=== PATIENT | female | born 1930 | race Caucasian/White ===

== ENCOUNTER 2017-11-11 06:59 | Inpatient (IN) | payer MEDICARE ==
--- NOTE | 2017-10-29 20:12 | HP ---
HISTORY AND PHYSICAL: DATE OF SURGERY/ADMISSION: 11/11/17 SURGEON: Clemencia Gee MD * (DICTATED BY JACKY FUNK) PROCEDURE: Right total hip arthroplasty. CHIEF COMPLAINT: Right hip pain. HISTORY OF PRESENT ILLNESS: Ms. Bobby is an 87-year-old female with complaints of right hip pain secondary to end-stage osteoarthritis. She has failed conservative management and elected to proceed with a right total hip arthroplasty, which is scheduled for 11/11/[address] Gee. PAST MEDICAL HISTORY: Hypertension, COPD, GERD, hypothyroidism, prior CVA in 2009, and anxiety. PAST SURGICAL HISTORY: Cholecystectomy and cataract removal. CURRENT MEDICATIONS: 1. Anoro Ellipta. 2. ProAir HFA. 3. Levothyroxine 25 mcg daily. 4. Hydrochlorothiazide 25 mg daily. 5. Sertraline 50 mg daily. 6. Zolpidem tartrate 10 mg q.h.s. 7. Pantoprazole sodium 40 mg daily. 8. Atorvastatin calcium 10 mg daily. 9. Fluticasone propionate nasal spray. 10. Amitriptyline 25 mg q.h.s. 11. Aspirin 325 mg daily. 12. Calcium with vitamin D. 13. Vitamin C. 14. Vitamin D3. 15. Centrum Silver. 16. I Vitamins. 17. Vitamin B12. ALLERGIES: SPIRIVA, TRAZODONE, and TYLENOL with CODEINE causing disorientation. FAMILY HISTORY: Cancer, coronary artery disease, stroke, and aneurysm. SOCIAL HISTORY: She is an 87-year-old female. She lives alone. She does not smoke, use drugs or alcohol. REVIEW OF SYSTEMS: A complete 14-point review of systems was reviewed with the patient. It was positive for history of a stroke in 2008 causing left-sided weakness. Positive for a history of DVT. Positive for hypothyroidism, GERD, shortness of breath, and COPD. She denies a history of hepatitis C, HIV, or anesthesia problems. PHYSICAL EXAMINATION GENERAL: She is well developed, well nourished, in no acute distress. VITAL SIGNS: She stands 4 feet 10 inches tall, weighs 107 pounds. Her blood pressure is 134/76, her heart rate is 92. HEENT: Normocephalic, atraumatic. NECK: Supple. No palpable lymph nodes. PULMONARY: The lungs are clear to auscultation bilaterally. CARDIO: Regular rate and rhythm. Strong S1, S2. ABDOMEN: Soft, nontender, nondistended. MUSCULOSKELETAL: Right lower extremity, the skin is intact. There are no open wounds or abrasions. She has decreased internal and external rotation of the right hip. She walks with an antalgic gait favoring the right hip. She has 2+ dorsalis pedis pulses. Her lower extremity muscle group strengths are intact at 5/5 and she has intact sensation. ASSESSMENT AND PLAN: Ms. Bobby is an 87-year-old female with complaints of right hip pain secondary to end-stage osteoarthritis. She has failed conservative management and elected to proceed with a right total hip arthroplasty, which is scheduled for 11/11/[address] Gee discussed the risks and benefits of the surgery at today's visit and all of her questions were answered. She will follow up with Dr. Gee in 2 weeks after the surgery. JACKY FUNK [id number]/[facility] #: [id number] L[place]ON
[~2017-11-11 06:59] MED LIST: Buffered Lidocaine 0.9% SYRIN* 5 ML/SYR SYRINGE INTRADERM ONE; Famotidine IV* 10 MG/ML 2 ML (20 mg) IV ONE; Gabapentin CAP(*) 300 MG PO ONE
[2017-11-11] MEDS ORDERED: Famotidine IV* 10 MG/ML 2 ML (20 mg) ONE (07:40)
[2017-11-11] MEDS ORDERED: Gabapentin CAP(*) 300 MG ONE (07:41)
[2017-11-11] MEDS ORDERED: Buffered Lidocaine 0.9% SYRIN* 5 ML/SYR SYRINGE ONE (07:41)
[2017-11-11] MEDS ORDERED: Midazolam* 1 MG/ML 2 ML VIAL (2 MG) ONE (07:55)
[2017-11-11] MEDS ORDERED: Morphine PF AMP (0.5MG/ML)* 5 MG/10 ML AMP ONE (07:58)
[2017-11-11] MEDS ORDERED: fentaNYL* 50 MCG/ML 2 ML VIAL (100 MCG VIAL) ONE (08:05)
[2017-11-11] MEDS ORDERED: KETAMINE HCL* 50 MG/ML 10 ML VIAL ONE (08:26)
[2017-11-11] MEDS ORDERED: Ketorolac INJ* 30 MG/ML 1 ML VIAL ONE (09:13)
[2017-11-11] MEDS ORDERED: EPHEDrine (Pressors)* 50 MG/ML VIAL ONE (09:13)
[2017-11-11] MEDS ORDERED: Propofol* 10 MG/ML 20 ML BTL IV PUSH ONE (09:13)
[2017-11-11] MEDS ORDERED: Ondansetron INJ* 2 MG/ML VIAL ONE (09:13)
[2017-11-11] MEDS ORDERED: Dexamethasone IV* 4 MG/ML 1 ML (4 MG) ONE (09:13)
[2017-11-11] MEDS ORDERED: Phenylephrine INJ* 10 MG/ML 1 ML VIAL (10 MG) ONE (09:14)
[2017-11-11] MEDS ORDERED: Acetaminophen TAB* 325 MG PO PRN ×2 (09:26→09:31)
[2017-11-11] MEDS ORDERED: Magnesium Hydroxide LIQ* 30 ML UDC PO PRN (09:26)
[2017-11-11] MEDS ORDERED: diPHENhydraMINE IV* 50 MG/ML 1 ml VIAL (BENADRYL) IV PRN (09:26)
[2017-11-11] MEDS ORDERED: Cyclobenzaprine TAB* 10 MG PO PRN (09:26)
[2017-11-11] MEDS ORDERED: oxyCODONE TAB* 5 MG TAB PO PRN (09:31)
[2017-11-11] MEDS ORDERED: DiMENhydriNATE IV* 50 MG/ML VIAL IV PUSH PRN (09:31)
[2017-11-11] MEDS ORDERED: Naloxone* 0.4 MG/ML 1 ML VIAL IV PRN ×2 (09:31→09:33)
[2017-11-11] MEDS ORDERED: HYDROmorphone INJ* 1 MG/ML CARPUJECT SYRINGE IV PRN (09:31)
[2017-11-11] MEDS ORDERED: Gabapentin CAP(*) 100 MG PO ONE (09:32)
[2017-11-11] MEDS ORDERED: Nalbuphine* 20 MG/ML 1 ML VIAL IV PRN (09:33)
[2017-11-11] MEDS ORDERED: oxyCODONE/Acetamin 5/325 MG* TAB PO PRN (09:33)
[2017-11-11] MEDS ORDERED: Ondansetron INJ* 2 MG/ML VIAL IV PRN (09:33)
--- NOTE | 2017-11-11 09:51 | RAD ---
INDICATION: Intraoperative film during right hip arthroplasty TECHNIQUE: An AP view of the pelvis was obtained in the OR. FINDINGS: The right hip prosthesis is anatomically aligned in the AP projection. The femoral head component has not yet been installed. The visualized bones are adequately aligned. IMPRESSION: Anatomic alignment of currently installed hip prostheses in the AP projection on this intraoperative radiograph.
[2017-11-11] MEDS ORDERED: Gabapentin CAP(*) 100 MG ONE (10:20)
[2017-11-11] MEDS: Ibuprofen TAB* 600 MG PO SCH ×3 (13:36→22:28)
--- NOTE | 2017-11-11 14:25 | RAD ---
HISTORY: Status post right hip arthroplasty COMPARISONS: August 14, 2017 VIEWS: 3, Frontal view of the pelvis with frontal and crosstable lateral views of the right hip. The patient is obliqued to the left. FINDINGS: BONE DENSITY: Normal. BONES: The patient is status post right hip arthroplasty. There is no hardware failure or osteolysis. JOINTS: The patient is status post right hip arthroplasty ALIGNMENT: There is no dislocation. SOFT TISSUES: Unremarkable. OTHER FINDINGS: None. IMPRESSION: STATUS POST RIGHT HIP ARTHROPLASTY
[2017-11-11] MEDS ORDERED: NS 0.9% 500 ML* 500 ML IV ONE (14:40)
--- NOTE | 2017-11-11 14:49 | CONSULT ---
Subjective Date of Service: 11/11/17 Interval History: This is a very pleasant 87 year old female patient with longstanding hx of osteoarthritis of the right hip, that failed conservative treatment with PT and intraarticular injection in the past. Patient states she was having difficulty getting in and out of the car and ambulating up and down stairs and sought surgical consultation with Dr. Gee. She has undergone a right total hip arthroplasty today. She was seen in her room, family at bedside. She is having post-operative hypotension with dizziness and feels dry. Family History: Findings - Non-contributory Social History: Findings - Does not smoke, drink alcohol or use drugs Past Medical History: Findings - COPD, OA, Hypothyroidism, HTN, Anxiety/ Depression, Insomnia, HLP, GERD and prior CVA with left sided deficit Review of Systems - Measurements Intake and Output: Intake and Output Last 24 Hours 11/09/17 11/10/17 11/11/17 11/12/17 06:59 06:59 06:59 06:59 Intake Total 2725 Output Total 400 Balance 2325 Weight 108 lb Intake: IV Fluids 2195 LR 2195 Oral 530 Output: Martinez 400 - Review of Systems Constitutional Symptoms: Negative: Weight Gain, Weight Loss, Weakness, Fatigue, Fever, Night Sweats, Unexplained Falls, Other Dermatology: Negative: Normal, Rash, Skin Lesions, Cancer, Skin Lumps, Other HEENT: Negative: Normal, Change in Hearing, Vertigo, Dental Problems, Tinnitus, Sinus Problem, Other Eyes: Positive: Contacts or Glasses Thyroid: Negative: Normal, Goiter, Thyroid Nodule, Cold Intolerance, Heat Intolerance , Sweatiness, Tremor, Frequent Defecation, Constipation, Palpitations, Primary Hypothyroidism, Primary Hyperthyroidism, Weight Loss, Weight Gain, Change in Skin/Hair, Change in Menstruation, Radiation Exposure, Other Pulmonary: Positive: COPD, Exercise Intolerance, Home Oxygen Cardiology: Negative: Normal, Chest Pain, Shortness of Breath, Palpitations, Swelling of Ankles, Peripheral Vascular Dis, Edema, Faintness, Syncope, Claudication, Proximal NocturnalDyspnea, Orthopnoea, Other Gastroenterology: Negative: Normal, Abdominal Pain, Nausea, Vomiting, Anorexia, Indigestion, Difficulty Swallowing, Heartburn, Constipation, Diarrhea, Blood in Stools, Change in Bowel Habits, Haematemesis, Melena, Other Genital - Urinary: Positive: Other - martinez Genitourinay - Female: Negative: Menses Normal, Vaginal Discharge, Menopause, Dysmenorrhea, Other Musculoskeletal: Positive: Joint Pain, Other - post-operative pain, tolerable Endocrinology: Negative: Normal, Thyroid Problems, Adrenal Problems, Gonadal Problems, Family Hx Endocrine Disorders, Obesity, Diabetes Mellitus, Hyperglycemia, Hx Hypoglycemia, Diabetic Foot Ulcers, Calluses, Hirsutism, Menstral Abnormalities , Polydipsia, Polyuria, Gonadal Problems, Gynecomastia, Pituitary disease, Other Hematologic/Lymphatic: Negative: Anemia, Easy Brusing, Hx Leukemia, Hx Lymphoma, Use of Anticoagulant, Use of Antiplatelet Drugs, Other Neurology: Positive: Change in Balancing, Hx of Stroke\TIA, Other - left side deficit at baseline Psychiatry: Negative: Normal, Depression - history of anxiety/depression, Anxiety, Depressed Mood, Adhedonia, Sexual Dysfunction, Weight Change, Guilt Feelings, Tearfulness, Unusual Fatigue, Unusual Anxiety, Suicidal Ideation, Hypomania, Eating Disorders, Other Allergic/Immunologic: Negative: Hx Anaphylaxis, Hx Angioedema, Hx Environmental, Hx Seasonal, Athsma, Hx HIV, Immunocompromise, Swollen Glands LymphNodes, Other Objective Active Medications: Acetaminophen (Tylenol Tab*) 650 mg PO Q4H PRN PRN Reason: PAIN OR TEMPERATURE Amitriptyline HCl (Elavil Tab*) 25 mg PO BEDTIME ME[facility]I Atorvastatin Calcium (Lipitor*) 10 mg PO 1700 [facility] Cyclobenzaprine HCl (Flexeril Tab*) 10 mg PO TID PRN PRN Reason: SPASMS Diphenhydramine HCl (Benadryl Iv*) 25 mg IV Q6H PRN PRN Reason: itching Docusate Sodium (Colace Cap*) 100 mg PO BID [facility] Enoxaparin Sodium (Lovenox(*)) 30 mg SUBCUT Q24H [facility] Cefazolin Sodium/Dextrose (Kefzol 1 Gm In Dextrose Duplex (*)) 1 gm in 50 mls @ 200 mls/hr IVPB Q8H [facility] Lactated Ringer's (Lactated Ringers 1000 Ml Bag*) 1,000 mls @ 100 mls/hr IV PER RATE [facility] Last Admin: 11/11/17 12:06 Dose: 100 mls/hr Sodium Chloride (Ns 0.9% 500 Ml*) 500 mls @ 0 mls/hr IV ONCE ONE PRN Reason: Wide Open Stop: 11/11/17 14:41 Ibuprofen (Motrin Tab*) 600 mg PO Q6H [facility] Stop: 11/12/17 00:12 Last Admin: 11/11/17 13:36 Dose: Not Given Lactulose (Lactulose*) 30 ml PO Q6H PRN PRN Reason: constipation Levothyroxine Sodium (Synthroid Tab*) 25 mcg PO QAM@0600 [facility] Magnesium Hydroxide (Milk Of Magnesia Liq*) 30 ml PO BID [facility] Magnesium Hydroxide (Milk Of Magnesia Liq*) 30 ml PO Q6H PRN PRN Reason: constipation Morphine Sulfate (Morphine Inj (Syringe)*) 2 mg IV Q2H PRN PRN Reason: PAIN - UNCONTROLLED Multivitamins (Theragran Tab*) 1 tab PO DAILY [facility] Nalbuphine HCl (Nubain*) 5 mg IV Q6H PRN PRN Reason: pruritis Stop: 11/12/17 00:12 Naloxone HCl (Narcan*) 0.08 mg IV Q2M PRN PRN Reason: severe induced resp depression Stop: 11/12/17 00:12 Omeprazole (Prilosec Cap*) 20 mg PO QAM@0730 [facility] Ondansetron HCl (Zofran Inj*) 4 mg IV Q6H PRN PRN Reason: Nausea/Vomiting Stop: 11/12/17 00:12 Ondansetron HCl (Zofran Inj*) 4 mg IV Q6H PRN PRN Reason: nausea Oxycodone HCl (Roxycodone Tab*) 10 mg PO Q4H PRN PRN Reason: PAIN - SEVERE Oxycodone/Acetaminophen (Percocet 5/325 Tab*) 1 tab PO Q4H PRN PRN Reason: Moderate Pain Stop: 11/12/17 00:12 Oxycodone/Acetaminophen (Percocet 5/325 Tab*) 2 tab PO Q4H PRN PRN Reason: PAIN - MODERATE TO SEVERE Oxycodone/Acetaminophen (Percocet 5/325 Tab*) 1 tab PO Q4H PRN PRN Reason: PAIN - MODERATE Pharmacy Profile Note (Coumadin Daily Reminder*) 1 note FOLLOW UP 1700 [facility] Sertraline HCl (Zoloft*) 50 mg PO QAM [facility] Temazepam (Restoril Cap*) 15 mg PO BEDTIME [facility] Umeclidinium/Vilanterol (Anoro 62.5/25 Ellipta Device (Nf)) 1 inh INH QAM [facility] Warfarin Sodium (Coumadin Tab(*)) 6 mg PO ONCE@1700 ONE PRN Reason: Protocol Stop: 11/11/17 17:01 Vital Signs - 8 hr 11/11/17 11/11/17 11/11/17 07:57 10:26 10:30 Temperature 97.7 F 97.3 F Pulse Rate 91 75 76 Respiratory 20 20 20 Rate Blood Pressure 145/80 94/48 96/46 (mmHg) O2 Sat by Pulse 93 99 96 Oximetry 11/11/17 11/11/17 11/11/17 10:35 10:45 11:00 Temperature Pulse Rate 76 76 80 Respiratory 18 16 20 Rate Blood Pressure 94/55 93/51 96/59 (mmHg) O2 Sat by Pulse 98 98 100 Oximetry 11/11/17 11/11/17 11/11/17 11:15 11:33 11:45 Temperature 97.0 F Pulse Rate 80 80 Respiratory 18 18 14 Rate Blood Pressure 99/55 100/61 (mmHg) O2 Sat by Pulse 99 100 Oximetry 11/11/17 11/11/17 11/11/17 12:17 12:57 14:33 Temperature 97.5 F 97.7 F Pulse Rate 81 86 Respiratory 14 16 Rate Blood Pressure 100/52 99/55 (mmHg) O2 Sat by Pulse 99 99 99 Oximetry Oxygen Devices in Use Now: Nasal Cannula - 2LNC Appearance: Alert, NAD, well appearing Eyes: No Scleral Icterus, PERRLA Ears/Nose/Mouth/Throat: NL Teeth, Lips, Gums, - - dry oral mucosa Neck: Trachea Midline - bounding carotid pulse Respiratory: Symmetrical Chest Expansion and Respiratory Effort, Clear to Auscultation Cardiovascular: RRR, No Edema - regular rate and rhythm, no murmur Abdominal: NL Sounds; No Tenderness; No Distention Extremities: No Edema, No Clubbing, Cyanosis Skin: No Rash or Ulcers, - - dressing CDI Neurological: Alert and Oriented x 3, NL Sensation - baseline left side motor weakness, sensation intact Lines/Tubes/Other Access: Clean, Dry and Intact Martinez, Clean, Dry and Intact Peripheral IV Assessment/Plan - Billing Assessment: This is an 87 year old female with PMHx of COPD, OA, Hypothyroidism, HTN, Anxiety/Depression, Insomnia, HLP, GERD and prior CVA with left sided deficit that has undergone a RTHA, POD0. We are being consulted for medical co- management of post-opertive hypotension. Plan: 1. Hold HCTZ 2. Fluid bolus now, NS 500ml 3. Monitor for orthostasis, supervised position changes 4. Titrate O2 to keep sat >90% 5. Add restoril for sleep, as patient is stabilized on ambien which is NF med 6. Continue home medications per DEC 7. PT/OT, hip precautions, pain control as per ortho team VTE PPX: - Lovenox/coumadin bridge per ortho Diet: - Regular, as tolerated Code Status: - Full Code Thank you for the courtesy of this consult, will follow patient with you.
[2017-11-11] MEDS: ceFAZolin 1 GM in Dextrose (*) 1 GM/50 ML BAG IVPB SCH (16:58)
[2017-11-11] MEDS ORDERED: Warfarin TAB(*) 6 MG PO ONE (17:00)
[2017-11-11] MEDS ORDERED: Atorvastatin* 10 MG TAB PO SCH (17:00)
[2017-11-11] MEDS: Amitriptyline TAB* 25 MG PO SCH (22:29)
[2017-11-11] MEDS: Docusate CAP* 100 MG PO SCH (22:29)
[2017-11-11] MEDS: Atorvastatin* 10 MG TAB PO SCH (22:29)
[2017-11-11] MEDS: Magnesium Hydroxide LIQ* 30 ML UDC PO SCH (22:31)
[2017-11-12] MEDS ORDERED: oxyCODONE/Acetamin 5/325 MG* TAB PO PRN (00:13)
[2017-11-12] MEDS ORDERED: Morphine INJ* 2 MG/ML 1 ML SYRINGE (TWO MG - NEW SYRINGE VERSION) IV PRN (00:13)
[2017-11-12] MEDS: Temazepam CAP* 15 MG PO SCH ×2 (00:19→22:50)
[2017-11-12] MEDS ORDERED: NS 0.9% 500 ML* 500 ML IV ONE (00:30)
[2017-11-12 00:58] LABS: Hematocrit 28 % (35-47); Hemoglobin 9.4 g/dl (12.0-16.0)
[2017-11-12] MEDS: ceFAZolin 1 GM in Dextrose (*) 1 GM/50 ML BAG IVPB SCH ×2 (01:09→08:21)
--- NOTE | 2017-11-12 04:55 | OP ---
DATE OF OPERATION: 11/11/17 - ROOM #349 DATE OF : 30 SURGEON: Clemencia Gee MD GAS EXAMINER: JACKY Obrien. Ms. Canales did help throughout the procedure with preparation of the leg, wound retraction, manipulation of the hip, and wound closure. ANESTHESIOLOGIST: Dr. Morelos. ANESTHESIA: Spinal. PRE-OP DIAGNOSIS: Severe end-stage degenerative osteoarthritis of the right hip joint. POST-OP DIAGNOSIS: Severe end-stage degenerative osteoarthritis of the right hip joint. OPERATIVE PROCEDURE: Right total hip arthroplasty. ESTIMATED BLOOD LOSS: 250 cc. COMPLICATIONS: None. SPECIMEN: Bone and cartilage sent from the right hip joint to pathology. HARDWARE USED: This is a [place] uncemented total hip arthroplasty hardware. For the cup, a Tritanium hemispheric cluster hole shell 50B. A single 16mm and a single 20 mm cancellous bone screws were used. For the insert, a Trident X3 0 - degree polyethylene insert 36B. For the stem, an Accolade TMZF, size 2.5 with a 127-degree neck and for the head, a Biolox delta ceramic V40 femoral head 36 -2.5. BRIEF HISTORY/INDICATIONS: Ms. Vandana Bobby is an 87-year-old female with years of increasingly severe right hip pain. She elected to undergo a right total hip arthroplasty due to continued pain and decreased quality of life. She failed conservative treatment with anti-inflammatories, pain medication and physical therapy. Informed consent was obtained from the patient. She understood the risks of the surgery included, but were not limited to bleeding, infection, damage to nearby structures, continued pain, need for further surgery , intraoperative fracture, nerve palsy, hardware failure or loosening, dislocation, leg length discrepancy, stroke, heart attack, blood clot, and . She wished to proceed. INTRAOPERATIVE FINDINGS: Intraoperatively, the patient was noted to have severe arthritis with extremely thin bony wan of the acetabulum. She had complete loss of cartilage in the femoral head and acetabulum. DESCRIPTION OF PROCEDURE: Ms. Vandana Bobby was identified in the preanesthesia unit. Her right lower extremity was marked as the correct operative side. Informed consent was signed and placed in the chart. The patient was taken to the operating room and placed under spinal anesthesia without difficulty. A Riley catheter was placed. The patient was placed in the left lateral decubitus position on the peg board. All bony prominences were well padded. The right lower extremity was prepped and draped in the usual sterile fashion. Preop time-out was made to correctly identify the patient's side and site. Appropriate perioperative antibiotics were given within 1 hour of incision. A 10-cm posterior hip incision was made with a 10 blade and carried down to the lateral fascial layer. The lateral fascial layer was incised in line with the skin incision. A Charnley retractor was placed. The piriformis and conjoint tendons were identified and elevated off the posterolateral femur using electrocautery. These were tagged with #5 Ethibonds. Electrocautery was used to make a capsular flap. This was also tagged with #5 Ethibonds. The hip was carefully dislocated. The lesser troch to center of the femoral head measured 48 mm. An oscillating saw was used to make the femoral neck cut. The femoral head was removed. The femur was carefully retracted anteriorly. After appropriate placement of retractors, the acetabulum was well visualized. Long- handled knife was used to remove any remaining labrum from the acetabular rim. It was noted that there was complete loss of cartilage in the acetabular wall. It was extremely thin. The acetabulum was sequentially reamed up to a size 49. Bleeding subchondral bone bed was obtained. A 49 trial had satisfactory stability. Final implant chosen was a Tritanium cluster hole shell 50B. This was impacted into the acetabulum without difficulty. Appropriate anteversion and abduction angle were obtained. Two screws were placed in the superior posterior quadrant for extra stability. These were length 16 and 20 mm. Insert chosen was a Trident X3 0- degree polyethylene insert 36D. This was impacted into the acetabulum without difficulty. Stability of the Z-line was checked and rechecked and noted to be stable. Attention was next turned to preparation of the femur. A canal finder was used to enter the proximal femur. The proximal femur was sequentially broached up to a size 2.5. The 2.5 broach had excellent stability and fit with appropriate anteversion. A 127 neck trial was chosen as well as a 36 -2.5 head trial. Lesser troch to the center of the femoral head measured 50 mm. The hip was reduced and taken through a range of motion. The hip was stable in all positions. The hip was carefully dislocated. All trials were carefully removed. Final implant chosen was an Accolade TMZF size 2.5 with a 127-degree neck. This was impacted into the femur without difficulty. Excellent stability and appropriate anteversion were obtained. A Biolox delta ceramic D40 femoral head 36 -3.5 was chosen as the final head and this was impacted on to the femoral neck. Lesser troch to the center of the femoral head measured 50 mm. The hip was reduced and taken through a range of motion. The hip was stable in all positions. There was appropriate soft tissue tension and leg length. The hip was copiously irrigated with sterile saline. Previously tagged capsule and tendons were reapproximated to the posterolateral femur through 2 trochanteric drill holes. The lateral fascial layer was closed using interrupted #1 Vicryls. The rest of the incision was closed in a layered fashion using 0 and 2-0 Vicryls. Skin was closed using running 3-0 Monocryl with Dermabond. Sterile Adaptic, 4x4s, and paper tape were used to cover the incision. The patient's anesthesia was reversed without difficulty. She was taken to the PACU in stable condition. Intended weightbearing will be weightbearing as tolerated. Intended DVT prophylaxis will be Coumadin with a Lovenox bridge. [id number]/[facility] #: [id number] [place]
[2017-11-12 05:35] LABS: Hematocrit 28 % (35-47); Hemoglobin 9.3 g/dl (12.0-16.0); Mean Platelet Volume 8 um3 (7.4-10.4); Platelet Count 167 10^3/ul (150-450)
[2017-11-12 05:49] LABS: INR 1.02 (0.77-1.02)
[2017-11-12] MEDS: Levothyroxine TAB* 25 MCG TAB PO SCH (06:01)
[2017-11-12] MEDS: oxyCODONE/Acetamin 5/325 MG* TAB PO PRN ×4 (06:01→23:19)
[2017-11-12] MEDS: Omeprazole CAP* 20 MG PO SCH (07:24)
[2017-11-12] MEDS: PTO:Umeclidin/Vilant 62.5 MDI 62.5/25 mcg 14 INH ELLIPTA DEVICE INH SCH (07:50)
[2017-11-12] MEDS: Docusate CAP* 100 MG PO SCH ×2 (08:21→22:31)
[2017-11-12] MEDS: Magnesium Hydroxide LIQ* 30 ML UDC PO SCH ×2 (08:21→22:33)
[2017-11-12] MEDS: Vitamin THERAPEUTIC TAB PO SCH (08:21)
[2017-11-12] MEDS: Potassium Chlor TAB* 20 MEQ TAB.ER PO SCH ×2 (08:21→22:31)
[2017-11-12] MEDS: Sertraline* 50 MG TAB PO SCH (08:21)
[2017-11-12] MEDS ORDERED: Hydrochlorothiazide TAB* 25 MG PO SCH (09:00)
[2017-11-12] MEDS ORDERED: Enoxaparin(*) 30 MG/0.3 ML SYR SUBCUT SCH (09:00)
[2017-11-12] MEDS ORDERED: Artificial Tears* 15 ML BTL BOTH EYES SCH (09:00)
[2017-11-12] MEDS: Ondansetron INJ* 2 MG/ML VIAL IV PRN ×2 (09:31→16:03)
[2017-11-12] MEDS ORDERED: THERA TEARS EYE BOTH EYES SCH (10:28)
--- NOTE | 2017-11-12 14:44 | PN ---
Progress Note - Progress Note Date of Service: 11/12/17 SOAP: Subjective: [] Objective: [] Assessment: [] Plan: []
--- NOTE | 2017-11-12 14:50 | PN ---
Progress Note - Progress Note Date of Service: 11/12/17 SOAP: Subjective: 87 y/o female s/p R BETTINA on 11/[address] Gee, P/O day 1. She had some dizziness and hypotension overnight, some nausea. Denies vomiting, F/C, SOB, CP. Pain level 6/10 currently, percocet controlling pain. Objective: Vital Signs Temp Pulse Resp BP Pulse Ox 98.8 F 73 16 98/48 99 11/12/17 12:00 11/12/17 12:00 11/12/17 14:31 11/12/17 12:00 11/12/17 12:00 Laboratory Results - last 24 hr 11/12/17 11/12/17 11/12/17 00:46 05:25 05:25 Hgb 9.4 L 9.3 L Hct 28 L 28 L Plt Count 167 MPV 8 INR (Anticoag Therapy) 1.02 Sodium Potassium Chloride Carbon Dioxide Anion Gap BUN Creatinine Est GFR ( Amer) Est GFR (Non-Af Amer) BUN/Creatinine Ratio Glucose Calcium 11/12/17 05:25 Hgb Hct Plt Count MPV INR (Anticoag Therapy) Sodium 138 Potassium 3.3 L Chloride 104 Carbon Dioxide 29 Anion Gap 5 BUN 18 Creatinine 0.76 Est GFR ( Amer) 92.6 Est GFR (Non-Af Amer) 72.0 BUN/Creatinine Ratio 23.7 H Glucose 101 H Calcium 7.9 L General: WN, WD, in NAD, lying comfortably in bed with son in room. A&Ox3. Normal mood and affect. RLE: Dressing D/C/I. No erythema proximal or distal to dressing. Able to DF/PF, wiggle toes, 2+ DP pulse, sensation intact distally. Assessment: 87 y/o female p/o day 1 s/p R BETTINA on 11/[address] Gee. Plan: - Continue PT/OT, hip precautions - Continue current pain regiment - Hypotensive with dizziness, Dr. Gee concerned for blood loss, will go ahead and give 1 unit as continues to have soft BP. - DVT prophylaxis with lovenox bridge to comadin
--- NOTE | 2017-11-12 14:53 | PN ---
Progress Note - Progress Note Date of Service: 11/12/17 Note: Addendum: 1 unit PRBC not given at this time, continue to monitor as BP is stable.
[2017-11-12] MEDS ORDERED: ceFAZolin 1 GM in Dextrose (*) 1 GM/50 ML BAG IVPB SCH (16:30)
--- NOTE | 2017-11-12 16:31 | PN ---
Subjective Date of Service: 11/12/17 Interval History: Patient seen and examined at bedside. Denies fever, chills, shortness of breath , chest discomfort, N/V/D. Pt reports lightheadedness when up. Pt states that her pain is controlled at this time. Pt and daughter report areas of redness to right bicep, right cheek and small area of redness to left cheek under O2 tubing that started after PT this afternoon. Area is not itchy. She has received new medications here and used new lotions. Family History: Findings - Non-contributory Social History: Findings - Does not smoke, drink alcohol or use drugs Past Medical History: Findings - COPD, OA, Hypothyroidism, HTN, Anxiety/ Depression, Insomnia, HLP, GERD and prior CVA with left sided deficit Objective Active Medications: Acetaminophen (Tylenol Tab*) 650 mg PO Q4H PRN Reason: PAIN OR TEMPERATURE Amitriptyline HCl (Elavil Tab*) 25 mg PO BEDTIME MEHDI Atorvastatin Calcium (Lipitor*) 10 mg PO BEDTIME MEHDI Cyclobenzaprine HCl (Flexeril Tab*) 10 mg PO TID PRN Reason: SPASMS Diphenhydramine HCl (Benadryl Iv*) 25 mg IV Q6H PRN Reason: itching Docusate Sodium (Colace Cap*) 100 mg PO BID MEHDI Enoxaparin Sodium (Lovenox(*)) 30 mg SUBCUT Q24H MEHDI Fluticasone Propionate (Flonase Nasal [place] 50mcg*) 2 spray BOTH NARES BEDTIME MEHDI Lactated Ringer's (Lactated Ringers 1000 Ml Bag*) 1,000 mls @ 100 mls/hr IV PER RATE MEHDI Lactulose (Lactulose*) 30 ml PO Q6H PRN Reason: constipation Levothyroxine Sodium (Synthroid Tab*) 25 mcg PO QAM@0600 EMHDI Magnesium Hydroxide (Milk Of Magnesia Liq*) 30 ml PO BID MEHDI Magnesium Hydroxide (Milk Of Magnesia Liq*) 30 ml PO Q6H PRN Reason: constipation Morphine Sulfate (Morphine Inj (Syringe)*) 2 mg IV Q2H PRN Reason: PAIN - UNCONTROLLED Multivitamins (Theragran Tab*) 1 tab PO DAILY MEHDI Pto: Thera Tears (Eye Drops) 1 dose BOTH EYES QAM MEHDI Omeprazole (Prilosec Cap*) 20 mg PO QAM@0730 MEHDI Ondansetron HCl (Zofran Inj*) 4 mg IV Q6H PRN Reason: nausea Oxycodone HCl (Roxycodone Tab*) 10 mg PO Q4H PRN Reason: PAIN - SEVERE Oxycodone/Acetaminophen (Percocet 5/325 Tab*) 2 tab PO Q4H PRN Reason: PAIN - MODERATE TO SEVERE Oxycodone/Acetaminophen (Percocet 5/325 Tab*) 1 tab PO Q4H PRN Reason: PAIN - MODERATE Pharmacy Profile Note (Coumadin Daily Reminder*) 1 note FOLLOW UP 1700 MEHDI Potassium Chloride (Klor Con Er Tab*) 20 meq PO BID MEHDI Sertraline HCl (Zoloft*) 50 mg PO QAM MEHDI Temazepam (Restoril Cap*) 15 mg PO BEDTIME MEHDI Umeclidinium/Vilanterol (Anoro 62.5/25 Ellipta Device (Nf)) 1 inh INH QAM MEHDI Warfarin Sodium (Coumadin Tab(*)) 8 mg PO ONCE@1700 ONE Stop: 11/12/17 17:01 Vital Signs - 8 hr 11/12/17 11/12/17 11/12/17 08:56 09:31 11:24 Temperature Pulse Rate Respiratory 16 16 Rate Blood Pressure (mmHg) O2 Sat by Pulse 93 Oximetry 11/12/17 11/12/17 11/12/17 12:00 12:22 13:38 Temperature 98.8 F Pulse Rate 73 82 Respiratory 16 16 Rate Blood Pressure 98/48 94/39 (mmHg) O2 Sat by Pulse 99 Oximetry 11/12/17 11/12/17 11/12/17 14:31 15:17 16:23 Temperature 99.3 F Pulse Rate 75 Respiratory 16 16 16 Rate Blood Pressure 98/45 (mmHg) O2 Sat by Pulse 94 Oximetry Oxygen Devices in Use Now: Nasal Cannula - 2L Appearance: NAD, sitting up in bed Ears/Nose/Mouth/Throat: Mucous Membranes Moist Respiratory: Symmetrical Chest Expansion and Respiratory Effort, Clear to Auscultation Cardiovascular: NL Sounds; No Murmurs; No JVD, RRR Abdominal: NL Sounds; No Tenderness; No Distention Extremities: No Edema Skin: No Rash or Ulcers, - - Dressing to right hip clean, dry and intact. Pt noted to have area of slight errythma to right cheek, right bicept and small area to left cheek Neurological: Alert and Oriented x 3, NL Muscle Strength and Tone Lines/Tubes/Other Access: Clean, Dry and Intact Peripheral IV - site benign Nutrition: Taking PO's Result Diagrams: 11/12/17 05:25 11/12/17 05:25 Assess/Plan/Problems-Billing Assessment: Mr. Bobby is an 87 year old female with PMHx of COPD, OA, Hypothyroidism, HTN, Anxiety/Depression, Insomnia, HLP, GERD and prior CVA with left sided deficit that has undergone a RTHA, POD0. We are being consulted for medical co- management of post-opertive hypotension. - Patient Problems (1) Status post total hip replacement, right Code(s): Z96.641 - PRESENCE OF RIGHT ARTIFICIAL HIP JOINT SNOMED Code(s): 758455922104 Comment: - POD #1, management per Ortho - Continue PT/OT, pain management and bowel regimen (2) HTN (hypertension) Code(s): I10 - ESSENTIAL (PRIMARY) HYPERTENSION SNOMED Code(s): 81323748 Comment: - With post-op hypotension, SBP 80-90's - Continue to hold HCTZ (3) COPD (chronic obstructive pulmonary disease) Code(s): J44.9 - CHRONIC OBSTRUCTIVE PULMONARY DISEASE, UNSPECIFIED SNOMED Code(s): 65687272 Comment: - With chronic hypoxic respiratory failure on home O2 - No signs of acute exacerbation - Continue Ellipta (4) Hypothyroidism Code(s): E03.9 - HYPOTHYROIDISM, UNSPECIFIED SNOMED Code(s): 62418198 Comment: - Continue levothyroxine (5) Anxiety and depression Code(s): F41.8 - OTHER SPECIFIED ANXIETY DISORDERS SNOMED Code(s): 286867843 Comment: - Continue zoloft and amitriptyline (6) Insomnia Code(s): G47.00 - INSOMNIA, UNSPECIFIED SNOMED Code(s): 524141792 Comment: - Continue restoril PRN (7) HLD (hyperlipidemia) Code(s): E78.5 - HYPERLIPIDEMIA, UNSPECIFIED SNOMED Code(s): 68462897 Comment: - Continue atorvastatin (8) GERD (gastroesophageal reflux disease) Code(s): K21.9 - GASTRO-ESOPHAGEAL REFLUX DISEASE WITHOUT ESOPHAGITIS SNOMED Code(s): 578140917 Comment: - Continue omeprazole (9) History of CVA (cerebrovascular accident) Code(s): Z86.73 - PRSNL HX OF TIA (TIA), AND CEREB INFRC W/O RESID DEFICITS SNOMED Code(s): 639581735 Comment: - Continue Statin - Resume ASA when ok with Ortho (10) DVT prophylaxis Code(s): STT2042 - SNOMED Code(s): 826231482 Comment: - Lovenox bridge to warfarin per ortho (11) DNR (do not resuscitate) Status and Disposition: Inpatient. Disposition per Orthopedics. Suspect Pt will need THADDEUS vs PMRU at discharge. Thank you for this consultation. We will continue to follow.
[2017-11-12] MEDS ORDERED: Warfarin TAB(*) 4 MG PO ONE (17:00)
[2017-11-12] MEDS: Morphine INJ* 2 MG/ML 1 ML CARPUJECT IV PRN (20:56)
[2017-11-12] MEDS ORDERED: FLUTICASONE 50 MCG BOTH NARES SCH (21:00)
[2017-11-12] MEDS: Amitriptyline TAB* 25 MG PO SCH (22:31)
[2017-11-12] MEDS: Atorvastatin* 10 MG TAB PO SCH (22:32)
[2017-11-13 05:21] LABS: Hematocrit 31 % (35-47); Hemoglobin 10.4 g/dl (12.0-16.0); Mean Platelet Volume 8 um3 (7.4-10.4); Platelet Count 183 10^3/ul (150-450)
[2017-11-13] MEDS: oxyCODONE/Acetamin 5/325 MG* TAB PO PRN (05:33)
[2017-11-13 05:35] LABS: INR 2.22 (0.77-1.02)
[2017-11-13] MEDS: Morphine INJ* 2 MG/ML 1 ML CARPUJECT IV PRN (06:13)
[2017-11-13] MEDS: Levothyroxine TAB* 25 MCG TAB PO SCH (06:16)
[2017-11-13] MEDS: Omeprazole CAP* 20 MG PO SCH (07:10)
[2017-11-13] MEDS: oxyCODONE TAB* 5 MG TAB PO PRN ×2 (07:34→12:43)
[2017-11-13] MEDS: PTO:Umeclidin/Vilant 62.5 MDI 62.5/25 mcg 14 INH ELLIPTA DEVICE INH SCH (08:53)
[2017-11-13] MEDS: Sertraline* 50 MG TAB PO SCH (09:01)
[2017-11-13] MEDS: Docusate CAP* 100 MG PO SCH (09:01)
[2017-11-13] MEDS: Magnesium Hydroxide LIQ* 30 ML UDC PO SCH (09:01)
[2017-11-13] MEDS: Potassium Chlor TAB* 20 MEQ TAB.ER PO SCH (09:01)
[2017-11-13] MEDS: Vitamin THERAPEUTIC TAB PO SCH (09:01)
--- NOTE | 2017-11-13 09:55 | PN ---
Progress Note - Progress Note Date of Service: 11/13/17 SOAP: Subjective: []Patient seen at bedside. She denies RLE pain, CP, dizziness, SOB. She has blotchy skin redness that is not painful, tender or itchy. It was present yesterday with areas that have since cleared and new areas have appeared. No lip swelling or difficulty breathing. Objective: [] Vital Signs Temp 98.9 F 11/13/17 08:03 Pulse 92 11/13/17 08:57 Resp 16 11/13/17 08:57 BP 102/43 11/13/17 08:03 Pulse Ox 97 11/13/17 08:57 Intake & Output 11/12/17 11/13/17 11/13/17 18:59 06:59 18:59 Intake Total 2419 1167 980 Output Total 375 500 Balance 2044 667 980 Intake: IV Fluids 1309 667 980 LR 1309 667 980 IVPB 110 ABX - CEFAZOLIN 110 Oral 1000 500 Output: Urine 375 500 Other: # Bowel Movements 0 0 Laboratory Last Values Hgb 10.4 g/dl (12.0-16.0) L 11/13/17 04:37 Hct 31 % (35-47) L 11/13/17 04:37 Plt Count 183 10^3/ul (150-450) 11/13/17 04:37 MPV 8 um3 (7.4-10.4) 11/13/17 04:37 INR (Anticoag Therapy) 2.22 (0.77-1.02) H 11/13/17 04:37 Sodium 138 mmol/L (133-145) 11/12/17 05:25 Potassium 3.3 mmol/L (3.5-5.0) L 11/12/17 05:25 Chloride 104 mmol/L (101-111) 11/12/17 05:25 Carbon Dioxide 29 mmol/L (22-32) 11/12/17 05:25 Anion Gap 5 mmol/L (2-11) 11/12/17 05:25 BUN 18 mg/dL (6-24) 11/12/17 05:25 Creatinine 0.76 mg/dL (0.51-0.95) 11/12/17 05:25 Est GFR ( Amer) 92.6 (>60) 11/12/17 05:25 Est GFR (Non-Af Amer) 72.0 (>60) 11/12/17 05:25 BUN/Creatinine Ratio 23.7 (8-20) H 11/12/17 05:25 Glucose 101 mg/dL (70-100) H 11/12/17 05:25 Calcium 7.9 mg/dL (8.6-10.3) L 11/12/17 05:25 General: Well appearing, NAD RLE: Dressing changed. Incision CDI no surrounding erythema or discharge. DF/PF intact. DP 2+. Sensation intact distally BL LE: Calves supple and nontender without erythema, edema or palpable cords. Skin: Poorly defined blotchy red patches of LUE, right side of back and right flank. Not raised, nontender, not hot to touch. Assessment: []87 y/o female p/o day 2 s/p R BETTINA on 11/[address] Gee. Plan: - Continue PT/OT, hip precautions - Continue pain management - DVT prophylaxis: Stop lovenox, hold coumadin today - PMRU - Monitor skin
[2017-11-13] MEDS: Ondansetron INJ* 2 MG/ML VIAL IV PRN (10:43)
--- NOTE | 2017-11-13 11:38 | PN ---
Subjective Date of Service: 11/13/17 Interval History: Patient seen and examined at bedside. Denies fever, chills, shortness of breath , chest discomfort, N/V/D. Pt states that she continues to intermittently have lightheadedness. She states that her normal blood pressure is 130 systolic. Family History: Findings - Non-contributory Social History: Findings - Does not smoke, drink alcohol or use drugs Past Medical History: Findings - COPD, OA, Hypothyroidism, HTN, Anxiety/ Depression, Insomnia, HLP, GERD and prior CVA with left sided deficit Objective Active Medications: Acetaminophen (Tylenol Tab*) 650 mg PO Q4H PRN Reason: PAIN OR TEMPERATURE Amitriptyline HCl (Elavil Tab*) 25 mg PO BEDTIME MEHDI Atorvastatin Calcium (Lipitor*) 10 mg PO BEDTIME MEHDI Cyclobenzaprine HCl (Flexeril Tab*) 10 mg PO TID PRN Reason: SPASMS Diphenhydramine HCl (Benadryl Iv*) 25 mg IV Q6H PRN Reason: itching Docusate Sodium (Colace Cap*) 100 mg PO BID MEHDI Fluticasone Propionate (Flonase Nasal [place] 50mcg*) 2 spray BOTH NARES BEDTIME MEHDI Lactated Ringer's (Lactated Ringers 1000 Ml Bag*) 1,000 mls @ 100 mls/hr IV PER RATE MEHDI Lactulose (Lactulose*) 30 ml PO Q6H PRN Reason: constipation Levothyroxine Sodium (Synthroid Tab*) 25 mcg PO QAM@0600 MEHDI Magnesium Hydroxide (Milk Of Magnesia Liq*) 30 ml PO BID MEHDI Magnesium Hydroxide (Milk Of Magnesia Liq*) 30 ml PO Q6H PRN Reason: constipation Morphine Sulfate (Morphine Inj (Syringe)*) 2 mg IV Q2H PRN Reason: PAIN - UNCONTROLLED Multivitamins (Theragran Tab*) 1 tab PO DAILY MEHDI Pto: Thera Tears (Eye Drops) 1 dose BOTH EYES QAM MEHDI Omeprazole (Prilosec Cap*) 20 mg PO QAM@0730 MEHDI Ondansetron HCl (Zofran Inj*) 4 mg IV Q6H PRN Reason: nausea Oxycodone HCl (Roxycodone Tab*) 10 mg PO Q4H PRN Reason: PAIN - SEVERE Oxycodone/Acetaminophen (Percocet 5/325 Tab*) 2 tab PO Q4H PRN Reason: PAIN - MODERATE TO SEVERE Oxycodone/Acetaminophen (Percocet 5/325 Tab*) 1 tab PO Q4H PRN Reason: PAIN - MODERATE Pharmacy Profile Note (Coumadin Daily Reminder*) 1 note FOLLOW UP 1700 MEHDI Potassium Chloride (Klor Con Er Tab*) 20 meq PO BID MEHDI Sertraline HCl (Zoloft*) 50 mg PO QAM MEHDI Temazepam (Restoril Cap*) 15 mg PO BEDTIME MEHDI Umeclidinium/Vilanterol (Anoro 62.5/25 Ellipta Device (Nf)) 1 inh INH QAM MEHDI Vital Signs - 8 hr 11/13/17 11/13/17 11/13/17 05:33 06:13 07:10 Temperature Pulse Rate Respiratory 18 16 18 Rate Blood Pressure (mmHg) O2 Sat by Pulse Oximetry 11/13/17 11/13/17 11/13/17 07:34 08:00 08:03 Temperature 98.9 F Pulse Rate 94 Respiratory 18 16 Rate Blood Pressure 102/43 (mmHg) O2 Sat by Pulse 97 84 Oximetry 11/13/17 11/13/17 11/13/17 08:54 08:57 10:18 Temperature Pulse Rate 90 92 Respiratory 16 16 Rate Blood Pressure (mmHg) O2 Sat by Pulse 97 97 Oximetry Oxygen Devices in Use Now: Nasal Cannula - 2L Appearance: NAD, sitting up in a chair Ears/Nose/Mouth/Throat: Mucous Membranes Moist Respiratory: Symmetrical Chest Expansion and Respiratory Effort, Clear to Auscultation Cardiovascular: NL Sounds; No Murmurs; No JVD, RRR Abdominal: NL Sounds; No Tenderness; No Distention Skin: - Neurological: Alert and Oriented x 3, NL Muscle Strength and Tone Result Diagrams: 11/13/17 04:37 11/12/17 05:25 Assess/Plan/Problems-Billing Assessment: Mr. Bobby is an 87 year old female with PMHx of COPD, OA, Hypothyroidism, HTN, Anxiety/Depression, Insomnia, HLP, GERD and prior CVA with left sided deficit that has undergone a RTHA, POD0. We are being consulted for medical co- management of post-opertive hypotension. - Patient Problems (1) Status post total hip replacement, right Code(s): Z96.641 - PRESENCE OF RIGHT ARTIFICIAL HIP JOINT SNOMED Code(s): 488416157966 Comment: - POD #2, management per Ortho - Continue PT/OT, pain management and bowel regimen (2) HTN (hypertension) Code(s): I10 - ESSENTIAL (PRIMARY) HYPERTENSION SNOMED Code(s): 08239776 Comment: - With post-op hypotension, improving, SBP 90-100's - Continue to hold HCTZ (3) COPD (chronic obstructive pulmonary disease) Code(s): J44.9 - CHRONIC OBSTRUCTIVE PULMONARY DISEASE, UNSPECIFIED SNOMED Code(s): 55485643 Comment: - With chronic hypoxic respiratory failure on home O2 - No signs of acute exacerbation - Continue Ellipta (4) Hypothyroidism Code(s): E03.9 - HYPOTHYROIDISM, UNSPECIFIED SNOMED Code(s): 79142432 Comment: - Continue levothyroxine (5) Anxiety and depression Code(s): F41.8 - OTHER SPECIFIED ANXIETY DISORDERS SNOMED Code(s): 808234828 Comment: - Continue zoloft and amitriptyline (6) Insomnia Code(s): G47.00 - INSOMNIA, UNSPECIFIED SNOMED Code(s): 741606376 Comment: - Continue restoril PRN (7) HLD (hyperlipidemia) Code(s): E78.5 - HYPERLIPIDEMIA, UNSPECIFIED SNOMED Code(s): 04381257 Comment: - Continue atorvastatin (8) GERD (gastroesophageal reflux disease) Code(s): K21.9 - GASTRO-ESOPHAGEAL REFLUX DISEASE WITHOUT ESOPHAGITIS SNOMED Code(s): 527843579 Comment: - Continue omeprazole (9) History of CVA (cerebrovascular accident) Code(s): Z86.73 - PRSNL HX OF TIA (TIA), AND CEREB INFRC W/O RESID DEFICITS SNOMED Code(s): 109245410 Comment: - Continue Statin - Resume ASA when ok with Ortho (10) DVT prophylaxis Code(s): FBZ3216 - SNOMED Code(s): 355033868 Comment: - Lovenox bridge to warfarin per ortho (11) DNR (do not resuscitate) Status and Disposition: Inpatient. Disposition per Orthopedics. Medically stable for discharge to [facility] today. Thank you for this consultation.
[2017-11-13 12:37] VITALS: BP 101/51
--- NOTE | 2017-11-14 00:22 | DS ---
DISCHARGE SUMMARY: DATE OF ADMISSION: 11/11/17 DATE OF DISCHARGE: 11/13/17 ATTENDING PROVIDER: Clemencia Gee MD.* (DICTATED BY JACKY VARGAS) JIGSAWYER: JACKY Obrien. PRE-OP DIAGNOSIS: Severe end-stage degenerative osteoarthritis of the right hip joint. OPERATIVE PROCEDURE: Right total hip arthroplasty. HISTORY: Ms. Bobby is an 87-year-old female with years of increasingly severe right hip pain. She elected to undergo a right total hip arthroplasty due to continued pain and decreased quality of life. She failed conservative management with antiinflammatories, pain medication and physical therapy. She elected to undergo a right total hip arthroplasty. HOSPITAL COURSE: On 11/11/17, the patient was admitted to [facility]. She underwent a right total hip arthroplasty without complication. She was taken to the PACU in stable condition where she recovered briefly and then was transferred to the short stay surgical unit again in stable condition. She was consulted by the hospitalist service, Physical Therapy and Occupational Therapy. On postop day 0, 11/11/17, she was having postoperative hypotension with dizziness, for which she was seen by the hospitalist service. Her hydrochlorothiazide was held. She was given a fluid bolus of normal saline. Postop day 1, she was well appearing, lying comfortably in bed, alert and oriented x3. Dressing was clean, dry and intact. No erythema dressing, able to dorsiflex and plantarflex, wiggle toes, 2+ dorsalis pedis pulse. Sensation intact distally. Hemoglobin 9.3, hematocrit 28. INR 1.02. Postop day 2, the patient was well appearing, in no acute distress. Dressing was changed. Incision was clean, dry, and intact with no surrounding erythema or discharge. Dorsiflexion and plantar flexion are intact. 2+ dorsalis pedis pulse. Sensation intact distally. Calves are supple and nontender without erythema, edema or palpable cords. On the skin, poorly defined blotchy red patches were noted at the right upper extremity, right side of the back and right flank. These patches were not raised, nontender and not hard to touch. The incision was not involved in these areas of erythema, these areas were not itchy or painful to the patient. Hemoglobin 10.4, hematocrit 31. INR 2.32. The patient was deemed to be medically and orthopedically stable for discharge to [facility] Rehab Unit. DISCHARGE MEDICATIONS: 1. Aspirin 325 mg resumed at home. 2. Ambien 10 mg p.o. bedtime. 3. Pantoprazole 40 mg p.o. q.a.m. 4. Hydrochlorothiazide 25 mg p.o. q.a.m. 5. Amitriptyline 25 mg p.o. bedtime. 6. Fluticasone nasal spray, 2 sprays both nares bedtime. 7. Atorvastatin 10 mg p.o. daily. 8. Anoro Ellipta 62.5/25, 1 inhalation q.a.m. 9. Zoloft 50 mg p.o. q.a.m. 10. Multivitamins 1 cap p.o. q.a.m. 11. Levothyroxine 25 mcg p.o. q.a.m. 12. TheraTears 1 drop both eyes q.a.m. 13. Calcium carbonate with D 1 tab p.o. q.a.m. 14. Vitamin C 500 mg capsule 1 cap p.o. q.a.m. 15. Acetaminophen 1000 mg p.o. q.8 hours p.r.n. Do not exceed 4000 mg of acetaminophen from all sources daily. 16. Docusate 100 mg p.o. b.i.d. p.r.n. 17. Percocet 5/325 mg 1 to 2 tablets p.o. q.4 hours p.r.n., max daily dose of 8. 18. Warfarin 2 mg tablets given, may take between 0 and 3 tabs per day depending on INR draws. DISCHARGE PLAN: Weightbearing as tolerated. Continue hip precautions. Do not cross legs or bend greater than 90 degrees. Do not squat. PMRU to do wound checks and INR checks Friday and . Coumadin dosing 0 mg today, further dosing by PMRU. May take Percocet 5/325, 1 to 2 tabs by mouth every 4 to 6 hours for pain, maximum of 8 tabs per day for pain control. Follow up with Dr. Gee within 10 to 14 days. Call for an appointment. Potassium to be monitored in PMRU. BRIDGETT SANCHEZ, JACKY [id number]/[facility] #: [id number] [facility]ERN[facility]i
== END 2017-11-13 14:03 | DRG 470 ==
LOC: AA 06:59 → SSU 11:52 → PMRU 11-13 13:56 → SSU 11-13 13:59
PROVIDERS: ADMIT Orthopaedic Surgery Adult Reconstructive Orthopaedic Surgery; ATTEND Internal Medicine
PROC: 0SR904A Replacement of Right Hip Joint with Ceramic on Polyethylene Synthetic Substitute, Uncemented, Open Approach (ICD-10-PCS; principal; 2017-11-11 08:15)
DX: M16.11 Unilateral primary osteoarthritis, right hip (principal); J96.11 Chronic respiratory failure with hypoxia; J44.9 Chronic obstructive pulmonary disease, unspecified; I10 Essential (primary) hypertension; L53.9 Erythematous condition, unspecified; I95.81 Postprocedural hypotension; R42 Dizziness and giddiness; K21.9 Gastro-esophageal reflux disease without esophagitis; E78.5 Hyperlipidemia, unspecified; F32.9 Major depressive disorder, single episode, unspecified; G47.00 Insomnia, unspecified; Z66 Do not resuscitate; R11.0 Nausea; E03.9 Hypothyroidism, unspecified; F41.9 Anxiety disorder, unspecified; Z90.49 Acquired absence of other specified parts of digestive tract; I69.354 Hemiplegia and hemiparesis following cerebral infarction affecting left non-dominant side; Z99.81 Dependence on supplemental oxygen; Z79.82 Long term (current) use of aspirin; Z79.01 Long term (current) use of anticoagulants; Z98.49 Cataract extraction status, unspecified eye; Z88.8 Allergy status to other drugs, medicaments and biological substances; Z88.5 Allergy status to narcotic agent; Z88.6 Allergy status to analgesic agent; Z80.9 Family history of malignant neoplasm, unspecified; Z82.49 Family history of ischemic heart disease and other diseases of the circulatory system; Z82.3 Family history of stroke; Z86.718 Personal history of other venous thrombosis and embolism
CPT/HCPCS: 36415; 72170; 80048; 85014; 85018; 85049; 85610; 94640; 94760; A9270-GY; J0690; J1100; J1650; J1885; J2250; J2270; J2405; J2704; J3010

== ENCOUNTER 2017-11-13 14:00 | Inpatient (IN) | payer MEDICARE ==
[2017-11-13] MEDS ORDERED: Magnesium Hydroxide LIQ* 30 ML UDC PO PRN (15:17)
[2017-11-13] MEDS ORDERED: Senna TAB PO PRN (15:17)
[2017-11-13] MEDS ORDERED: Temazepam CAP* 15 MG PO PRN (15:29)
[2017-11-13] MEDS ORDERED: Warfarin TAB(*) 1 MG PO SCH (17:00)
[2017-11-13] MEDS ORDERED: Potassium Chlor TAB* 20 MEQ TAB.ER PO ONE (17:20)
[2017-11-13] MEDS: oxyCODONE/Acetamin 5/325 MG* TAB PO PRN ×2 (17:34→23:37)
[2017-11-13] MEDS: Atorvastatin* 10 MG TAB PO SCH (17:34)
--- NOTE | 2017-11-13 20:41 | HP ---
ADMISSION HISTORY AND PHYSICAL: DATE OF ADMISSION: 11/13/17 REASON FOR ADMISSION: Right total hip replacement. HISTORY OF ILLNESS: Vandana Bobby is an 87-year-old female. She has a medical history which is significant for COPD as well as hypertension. She had a small stroke in 2008 as well. The patient developed right groin pain starting last fall. She saw her primary care doctor, Dr. Lencho Montesinos who ordered an x-ray of her right hip, which showed severe end-stage osteoarthritis. She was referred to Dr. Gee. She failed conservative management. It was decided the best course of action would be for her to have a total hip replacement. She was admitted to [facility] on 11/11/17 and underwent a total hip replacement that day. Postoperatively, her course was notable for significant hypotension. She received fluid bolus and her diuretics were held. The patient's blood pressure slowly improved. She was felt to have physical therapy and occupational therapy needs. She is now being admitted for inpatient rehab so that she might return to independent living. PAST MEDICAL HISTORY: Significant for COPD as well as gastroesophageal reflux disease. She has a history of hypothyroidism, hypertension and small stroke in 2008. CURRENT MEDICATIONS: Include: 1. Anoro Ellipta. 2. She is also on amitriptyline. 3. Lipitor. 4. Synthroid. 5. Prilosec. 6. Percocet for pain control. 7. Zoloft. 8. Restoril. 9. Coumadin for DVT prophylaxis. ALLERGIES: Include SPIRIVA, TRAZODONE, and TYLENOL WITH CODEINE. SOCIAL HISTORY: She is a nonsmoker, nondrinker. She lives by herself at [facility]. She has a third gul[address] apartment, but there is an elevator in the building. She does have a daughter who lives in town that can get her groceries. REVIEW OF SYSTEMS: The patient reports no current shortness of breath or chest pain. PHYSICAL EXAMINATION VITAL SIGNS: The patient's temperature is 98.3, blood pressure is 118/57, pulse is 88, respirations are 20. HEENT: Her extraocular movements are intact. She is wearing 2 L of oxygen via nasal cannula. LUNGS: Sounded mostly clear to auscultation. HEART: Sounds were regular, S1 and S2 audible. ABDOMEN: Soft and nontender. EXTREMITIES: Her right hip has a wound, which is clean and dry. Peripheral pulses were intact. NEUROLOGIC: She is awake, alert, oriented. Muscle strength is 5/5 except the right lower extremity, which is 3/5 secondary to pain. FUNCTIONAL EXAM: She transfers with minimum amount of assistance. ASSESSMENT: Right total hip replacement. PLAN: Integrate her into comprehensive and therapeutic rehab program. We will have the following goals: 1. Physical Therapy will see the patient. They are going to work on functional transfer training, ambulation training with a walker. 2. Occupational Therapy will see the patient, work on her activities of daily living including toileting and toilet transfers. 3. Coumadin for DVT prophylaxis. 4. Adequate analgesia. 5. Her bowels will be regulated. 6. For hypothyroidism, continue Synthroid. 7. For her COPD, we are going to continue Anoro Ellipta. 8. For anxiety, we will continue her Zoloft, her Restoril as well as her Elavil. 9. Advance directives: The patient has a MOLST form and is DNR. 10. director patient financial services will be closely involved to make sure that any services and equipment the patient requires are in place prior to discharge. 11. Family training as appropriate. 12. Home with appropriate services. ESTIMATED LENGTH OF STAY: Seven to ten days. [id number]/[facility] #: [id number] [place]
[2017-11-13] MEDS: Docusate CAP* 100 MG PO SCH (21:00)
[2017-11-13] MEDS: Amitriptyline TAB* 25 MG PO SCH (21:00)
[2017-11-14] MEDS: Levothyroxine TAB* 25 MCG TAB PO SCH (04:52)
[2017-11-14] MEDS: oxyCODONE/Acetamin 5/325 MG* TAB PO PRN ×3 (04:52→18:04)
[2017-11-14 07:23] LABS: ABS Basophils 0 10^3/ul (0-0.2); ABS Eosinophils 0.4 10^3/ul (0-0.6); ABS Lymphocytes 1.2 10^3/ul (1.0-4.8); ABS Monocytes 0.7 10^3/ul (0-0.8); ABS Neutrophils 6.5 10^3/ul (1.5-7.7); ABS Nucleated RBC 0 10^3/ul; Eosinophil % 4.8 % (0-6); Hematocrit 30 % (35-47); Hemoglobin 10.2 g/dl (12.0-16.0); Lymphocyte % 13.1 % (25-47); Mean Corpuscular HGB Conc 34 g/dl (31-36); Mean Corpuscular Hemoglobin 33 pg (27-31); Mean Corpuscular Volume 96 fL (80-97); Mean Platelet Volume 8 um3 (7.4-10.4); Nucleated Red Blood Cells % 0; Platelet Count 188 10^3/ul (150-450); Red Blood Count 3.14 10^6/ul (4.0-5.4); Red Cell Distribution Width 14 % (10.5-15); White Blood Count 8.8 10^3/ul (3.5-10.8)
[2017-11-14 07:36] LABS: EGFR Non-African American 86.2 (>60)
[2017-11-14] MEDS: Omeprazole CAP* 20 MG PO SCH (07:41)
[2017-11-14] MEDS: Docusate CAP* 100 MG PO SCH ×2 (08:14→20:49)
[2017-11-14] MEDS: Sertraline* 50 MG TAB PO SCH (08:14)
[2017-11-14] MEDS: UMECLIDIN INH SCH (08:15)
[2017-11-14] MEDS: [UNRECOGNIZED DRUG - OTHER] INH SCH (08:15)
[2017-11-14 08:39] LABS: INR 6.27 (0.77-1.02)
--- NOTE | 2017-11-14 12:24 | PMRUTEAM ---
PMRU: Goals Current Status: Nursing: Current Status Skin Deviations [Bilateral Other Groin] Skin Deviations [Right Hip] Incision Skin Deviation Description [ redness good skin care provided. Bilateral Groin] Skin Deviation Description [ dressing in place Right Hip] Physical Therapy: Current Status Bed Mobility Assistance Mod Assist Transfer Moblility Assistance Mod Assist Transfer/Bed Mobility Rolling Walker Recommended Devices Ambulation Assistance Mod Assist 3 feet Ambulation Assistive Devices Rolling Walker Stairs Assistance Not Tested Stairs Recommended Devices Two Rails Number of Stairs 10 Occupational Therapy: Current Status Upper Body Dressing Supervision Lower Body Dressing Mod Assist Bathing Mod Assist Toileting Max Asst Toilet Transfer Min Assist Shower Transfer Min Assist Eating Ind with Adaptive Equip Rec Therapy: Current Status Summary of Assessment and Pt. was open to conversation - appeared tired but Clinical Impression was engaged in conversation throughout. Pt. identified with interests and active involvement in most of them prior to surgery. Pt. was open to continued leisure visits. Treatment Goals Pt. will engage in leisure activities while on the unit. Treatment Plan Provide RT services and encourage involvement. Social Work: Current Status Discharge Plan return home with home care svs and family support Potential for Family Training pt's children are involved and supportive Anticipated Discharge Home Destination Discharge With home care svs and family support Goals: Physical Therapy: Initial Goals Bed Mobility Assistance Independent Transfer Mobility Assistance Independent Transfer/Bed Mobility Rolling Walker Recommended Devices Ambulation Independent Ambulation Recommended Devices Rolling Walker Ambulation Distance 150 Stairs Assistance Independent Stair Recommended Devices Two Rails Number of Stairs 5 Physical Therapy: Updated Goals Transfer/Bed Mobility Rolling Walker Recommended Devices Occupational Therapy: Initial Goals Goals to be Completed in (Days 7-10 days ) Upper Body Bathing Routine Modified Independent with Lower Body Bathing Routine Modified Independent with Upper Body Dressing Routine Independent Lower Body Dressing Routine Modified Independent with Toilet Hygeine and Clothing Independent Management Routine Toilet Transfer Routine Modified Independent with Tub Transfer Routine Modified Independent with Functional Transfers for ADL Modified Independent with Grooming Routine Modified Independent with Feeding Routine Modified Independent with Social Work: Goals Discharge Plan return home with home care svs and family support Potential for Family Training pt's children are involved and supportive Anticipated Discharge Home Destination Discharge With home care svs and family support Care Plan: Care Plan Cardiovascular-Improve/Maintain Start: 11/14/17 01:22 Freq: QSHIFT Status: Active Target: Protocol: Activity Type Activity Date Activity User E-Sign Co-Sign Detail Recorded Client Recorded Date Recorded By Document 11/14/17 01:22 [id number] 11/14/17 01:22 [id number] 11/14/17 01:22 Outcome: Cardiovascular Current Cardiovascular Outcome/Goal Maintain/ achieve baseline HR, BP , Perfusion Improve HR within prescribed parameters Maintain/ improve perfusion Maintain/ achieve hemodynamic stability Improve/ maintain cardiac output Progression Towards Outcome/Goal Progressing Discharge Planning - Improve/Maintain Start: 11/14/17 11:02 Freq: QSHIFT Status: Active Target: Protocol: Activity Type Activity Date Activity User E-Sign Co-Sign Detail Recorded Client Recorded Date Recorded By Document 11/14/17 11:02 [id number] 11/14/17 11:36 [id number] 11/14/17 11:02 PMRU Outcome: Discharge Planning Outcome/Goals Demonstrates Understanding of Discharge Plan Homecare Referral - See Comment Progression Toward Outcome/Goals Progressing Gastrointestinal-Improve/Maintain Start: 11/14/17 01:22 Freq: QSHIFT Status: Active Target: Protocol: Activity Type Activity Date Activity User E-Sign Co-Sign Detail Recorded Client Recorded Date Recorded By Document 11/14/17 01:22 [id number] 11/14/17 01:22 [id number] 11/14/17 01:22 Outcome: Gastrointestinal Outcome/Goals Maintain/ Achieve Bowel Regularity in Accordance with Pt's Baseline Remain Free of Emesis Progression Toward Outcome/Goals Progressing Mobility- Improve/Maintain Start: 11/13/17 17:51 Freq: QSHIFT Status: Active Target: Protocol: Activity Type Activity Date Activity User E-Sign Co-Sign Detail Recorded Client Recorded Date Recorded By Document 11/13/17 17:51 [id number] 11/13/17 17:52 [id number] 11/13/17 17:51 PMRU Outcome: Mobility Physical Therapy Evaluation and Yes Treatment Activity OOB with Assistance Yes WBAT Yes Device Yes Assistance Yes Patient to be seen 5x/wk for 60-120 min/ Therex day for: Mobility Training Gait Training Balance Outcome/Goals Maintain/ Achieve Baseline Mobility Status Improve Mobility Status Demonstrates Proper Use of Assistive Devices Free from Complications of Immobility Bed Mobility Yes: independent Transfers Yes: independent with RW Gait x ft Yes: independent with RW to 150' Up/Down Stairs Yes: independent up/ down 5 stairs with 2 rails. Medicine Note: Length of Stay: 10 days Anticipated Discharge Destination: Home Tentative Discharge Date: 11/25/17 Discharged to: Home
--- NOTE | 2017-11-14 17:20 | PN ---
Progress Note Date of Service: 11/14/17 Note: JAVIER ZAMORA was visited. Therapy notes read and reviewed. INR supratherapeutic today. Coumadin on hold. She was discussed in interdisciplinary plan of care rounds. Doing slightly better but still getting dizzy when upright. HCTZ on hold Current Medications: Active Medications Generic Name Dose Route Start Last Admin Trade Name Freq PRN Reason Stop Dose Admin Acetaminophen 650 mg 11/13/17 15:17 Tylenol Tab* PO Q6H PRN FEVER/PAIN Amitriptyline HCl 25 mg 11/13/17 21:00 11/13/17 21:00 Elavil Tab* PO 25 mg BEDTIME MEHDI Administration Atorvastatin Calcium 10 mg 11/13/17 17:00 11/13/17 17:34 Lipitor* PO 10 mg 1700 MEHDI Administration Docusate Sodium 100 mg 11/13/17 21:00 11/14/17 08:14 Colace Cap* PO 100 mg BID MEHDI Administration Levothyroxine Sodium 25 mcg 11/14/17 06:00 11/14/17 04:52 Synthroid Tab* PO 25 mcg DAILY@0600 MEDHI Administration Magnesium Hydroxide 30 ml 11/13/17 15:17 Milk Of Magnesia Liq* PO Q6H PRN CONSTIPATION Omeprazole 40 mg 11/14/17 07:30 11/14/17 07:41 Prilosec Cap* PO 40 mg DAILY@0730 MEHDI Administration Oxycodone/Acetaminophen 1 tab 11/13/17 15:30 Percocet 5/325 Tab* PO Q4H PRN PAIN - MODERATE TO SEVERE Oxycodone/Acetaminophen 2 tab 11/13/17 15:31 11/14/17 11:58 Percocet 5/325 Tab* PO 2 tab Q4H PRN Administration PAIN - SEVERE Senna 2 tab 11/13/17 15:17 Senokot Tab* PO BEDTIME PRN CONSTIPATION Sertraline HCl 50 mg 11/14/17 09:00 11/14/17 08:14 Zoloft* PO 50 mg DAILY MEHDI Administration Temazepam 15 mg 11/13/17 15:29 Restoril Cap* PO BEDTIME PRN INSOMNIA Umeclidinium/Vilanterol 1 inh 11/14/17 09:00 11/14/17 08:15 Anoro 62.5/25 Ellipta Device (Nf) INH 1 inh DAILY MEHDI Administration Vital Signs: Vital Signs Temp Pulse Resp BP Pulse Ox 98.9 F 89 18 107/48 98 11/14/17 04:54 11/14/17 04:54 11/14/17 16:31 11/14/17 04:54 11/14/17 08:00 Lab Results: Laboratory Results - last 24 hr 11/14/17 11/14/17 11/14/17 06:55 06:55 06:55 WBC 8.8 RBC 3.14 L Hgb 10.2 L Hct 30 L MCV 96 MCH 33 H MCHC 34 RDW 14 Plt Count 188 MPV 8 Neut % (Auto) 73.8 Lymph % (Auto) 13.1 L [place] % (Auto) 8.1 Eos % (Auto) 4.8 Baso % (Auto) 0.2 Absolute Neuts (auto) 6.5 Absolute Lymphs (auto) 1.2 Absolute Monos (auto) 0.7 Absolute Eos (auto) 0.4 Absolute Basos (auto) 0 Absolute Nucleated RBC 0 Nucleated RBC % 0 INR (Anticoag Therapy) 6.27 H* Sodium 137 Potassium 4.6 Chloride 103 Carbon Dioxide 31 Anion Gap 3 BUN 16 Creatinine 0.65 Est GFR ( Amer) 110.9 Est GFR (Non-Af Amer) 86.2 BUN/Creatinine Ratio 24.6 H Glucose 89 Calcium 8.1 L Total Bilirubin 0.30 AST 198 H ALT 160 H Alkaline Phosphatase 164 H Total Protein 4.7 L Albumin 2.5 L Globulin 2.2 Albumin/Globulin Ratio 1.1 Exam: LUNGS: clear bilat HEART: Reg rhythm ABDOMEN: Soft +BS EXTREMITIES: RLE hip wound clean Assessment/Plan: 11/14/17 17:15 1. Right BETTINA: PT/OT. 2. DVT Prophylaxis: Coumadin on hold today. Recheck INR in am 3. Hypothyroid: Synthroid 4. Hypotension: Holding HCTZ. 5. COPD: Supplemental O2. Anoro Ellipta 6. Breast Mass: Suspect she can't have FNA while on Coumadin. Will ask surgery to comment 7. Analgesia: Percocet 8. Advanced directives:Has MOLST. DNR
[2017-11-14] MEDS: Atorvastatin* 10 MG TAB PO SCH (18:04)
[2017-11-14] MEDS: Amitriptyline TAB* 25 MG PO SCH (20:49)
[2017-11-15] MEDS: oxyCODONE/Acetamin 5/325 MG* TAB PO PRN ×4 (00:07→21:10)
[2017-11-15] MEDS: Omeprazole CAP* 20 MG PO SCH (06:14)
[2017-11-15] MEDS: Levothyroxine TAB* 25 MCG TAB PO SCH (06:14)
[2017-11-15 06:35] LABS: INR 5.89 (0.77-1.02)
[2017-11-15] MEDS: Sertraline* 50 MG TAB PO SCH (08:18)
[2017-11-15] MEDS: UMECLIDIN INH SCH (08:18)
[2017-11-15] MEDS: [UNRECOGNIZED DRUG - OTHER] INH SCH (08:18)
[2017-11-15] MEDS: Docusate CAP* 100 MG PO SCH ×2 (08:18→21:11)
--- NOTE | 2017-11-15 16:21 | PN ---
Progress Note Date of Service: 11/15/17 Note: JAVIER ZAMORA was visited. Nursing notes read and reviewed. Unable to have PT today as INR was over 5. She has no complaints otherwise. Current Medications: Active Medications Generic Name Dose Route Start Last Admin Trade Name Freq PRN Reason Stop Dose Admin Acetaminophen 650 mg 11/13/17 15:17 Tylenol Tab* PO Q6H PRN FEVER/PAIN Amitriptyline HCl 25 mg 11/13/17 21:00 11/14/17 20:49 Elavil Tab* PO 25 mg BEDTIME MEHDI Administration Atorvastatin Calcium 10 mg 11/13/17 17:00 11/14/17 18:04 Lipitor* PO 10 mg 1700 MEHDI Administration Docusate Sodium 100 mg 11/13/17 21:00 11/15/17 08:18 Colace Cap* PO 100 mg BID MEHDI Administration Levothyroxine Sodium 25 mcg 11/14/17 06:00 11/15/17 06:14 Synthroid Tab* PO 25 mcg DAILY@0600 MEHDI Administration Magnesium Hydroxide 30 ml 11/13/17 15:17 Milk Of Magnesia Liq* PO Q6H PRN CONSTIPATION Omeprazole 40 mg 11/14/17 07:30 11/15/17 06:14 Prilosec Cap* PO 40 mg DAILY@0730 MEHDI Administration Oxycodone/Acetaminophen 1 tab 11/13/17 15:30 Percocet 5/325 Tab* PO Q4H PRN PAIN - MODERATE TO SEVERE Oxycodone/Acetaminophen 2 tab 11/13/17 15:31 11/15/17 06:14 Percocet 5/325 Tab* PO 2 tab Q4H PRN Administration PAIN - SEVERE Senna 2 tab 11/13/17 15:17 Senokot Tab* PO BEDTIME PRN CONSTIPATION Sertraline HCl 50 mg 11/14/17 09:00 11/15/17 08:18 Zoloft* PO 50 mg DAILY MEHDI Administration Temazepam 15 mg 11/13/17 15:29 Restoril Cap* PO BEDTIME PRN INSOMNIA Umeclidinium/Vilanterol 1 inh 11/14/17 09:00 11/15/17 08:18 Anoro 62.5/25 Ellipta Device (Nf) INH 1 inh DAILY MEHDI Administration Vital Signs: Vital Signs Temp Pulse Resp BP Pulse Ox 97.8 F 86 18 103/89 99 11/15/17 15:40 11/15/17 15:40 11/15/17 15:40 11/15/17 15:40 11/15/17 15:40 Lab Results: Laboratory Results - last 24 hr 11/15/17 05:55 INR (Anticoag Therapy) 5.89 H* Exam: LUNGS: clear bilat HEART: Reg rhythm ABDOMEN: Soft +BS EXTREMITIES: RLE hip wound clean Assessment/Plan: 11/15/17 16:21 1. Right BETTINA: PT/OT. 2. DVT Prophylaxis: Coumadin on hold today. Recheck INR in am 3. Hypothyroid: Synthroid 4. Hypotension: Holding HCTZ. 5. COPD: Supplemental O2. Anoro Ellipta 6. Breast Mass: Suspect she can't have FNA while on Coumadin. Will ask surgery to comment 7. Analgesia: Percocet 8. Advanced directives:Elida ARAYA. DNR
[2017-11-15] MEDS: Atorvastatin* 10 MG TAB PO SCH (17:12)
[2017-11-15] MEDS: Amitriptyline TAB* 25 MG PO SCH (21:11)
[2017-11-16] MEDS: oxyCODONE/Acetamin 5/325 MG* TAB PO PRN ×3 (00:58→21:36)
[2017-11-16] MEDS: Levothyroxine TAB* 25 MCG TAB PO SCH (05:27)
[2017-11-16] MEDS: Omeprazole CAP* 20 MG PO SCH (05:32)
[2017-11-16 06:32] LABS: INR 5.04 (0.77-1.02)
[2017-11-16] MEDS: Sertraline* 50 MG TAB PO SCH (08:28)
[2017-11-16] MEDS: Docusate CAP* 100 MG PO SCH ×2 (08:28→21:35)
[2017-11-16] MEDS: UMECLIDIN INH SCH (08:29)
[2017-11-16] MEDS: [UNRECOGNIZED DRUG - OTHER] INH SCH (08:29)
[2017-11-16] MEDS ORDERED: Ondansetron TAB* 4 MG PO PRN (10:29)
--- NOTE | 2017-11-16 14:27 | PN ---
Progress Note Date of Service: 11/16/17 Note: JAVIER ZAMORA was visited. Nursing notes read and reviewed. Her INR is slowly decreasing. Will continue to hold Coumadin. She was nauseated this am and vomited. She was given Zofran. Current Medications: Active Medications Generic Name Dose Route Start Last Admin Trade Name Freq PRN Reason Stop Dose Admin Acetaminophen 650 mg 11/13/17 15:17 Tylenol Tab* PO Q6H PRN FEVER/PAIN Amitriptyline HCl 25 mg 11/13/17 21:00 11/15/17 21:11 Elavil Tab* PO 25 mg BEDTIME MEHDI Administration Atorvastatin Calcium 10 mg 11/13/17 17:00 11/15/17 17:12 Lipitor* PO 10 mg 1700 MEHDI Administration Docusate Sodium 100 mg 11/13/17 21:00 11/16/17 08:28 Colace Cap* PO 100 mg BID MEHDI Administration Hydrocortisone 1 applic 11/16/17 21:00 Hytone Cream 1%* TOPICAL BID MEHDI Levothyroxine Sodium 25 mcg 11/14/17 06:00 11/16/17 05:27 Synthroid Tab* PO 25 mcg DAILY@0600 MEHDI Administration Magnesium Hydroxide 30 ml 11/13/17 15:17 Milk Of Magnesia Liq* PO Q6H PRN CONSTIPATION Omeprazole 40 mg 11/14/17 07:30 11/16/17 05:32 Prilosec Cap* PO 40 mg DAILY@0730 MEHDI Administration Ondansetron HCl 4 mg 11/16/17 10:29 11/16/17 11:01 Zofran Tab* PO 4 mg Q6H PRN Administration NAUSEA Oxycodone/Acetaminophen 1 tab 11/13/17 15:30 Percocet 5/325 Tab* PO Q4H PRN PAIN - MODERATE TO SEVERE Oxycodone/Acetaminophen 2 tab 11/13/17 15:31 11/16/17 00:58 Percocet 5/325 Tab* PO 2 tab Q4H PRN Administration PAIN - SEVERE Senna 2 tab 11/13/17 15:17 Senokot Tab* PO BEDTIME PRN CONSTIPATION Sertraline HCl 50 mg 11/14/17 09:00 11/16/17 08:28 Zoloft* PO 50 mg DAILY MEHDI Administration Temazepam 15 mg 11/13/17 15:29 Restoril Cap* PO BEDTIME PRN INSOMNIA Umeclidinium/Vilanterol 1 inh 11/14/17 09:00 11/16/17 08:29 Anoro 62.5/25 Ellipta Device (Nf) INH 1 inh DAILY MEHDI Administration Vital Signs: Vital Signs Temp Pulse Resp BP Pulse Ox 98.5 F 85 18 134/53 100 11/16/17 05:28 11/16/17 05:28 11/16/17 05:28 11/16/17 05:28 11/16/17 08:00 Lab Results: Laboratory Results - last 24 hr 11/16/17 05:22 INR (Anticoag Therapy) 5.04 H* Exam: LUNGS: clear bilat HEART: Reg rhythm ABDOMEN: Soft +BS EXTREMITIES: RLE hip wound clean Assessment/Plan: 11/16/17 14:28 1. Right BETTINA: PT/OT. Therapy should be able to resume tomorrow 2. DVT Prophylaxis: Coumadin on hold today. Recheck INR in am 3. Hypothyroid: Synthroid 4. Hypotension: Holding HCTZ. 5. COPD: Supplemental O2. Anoro Ellipta 6. Breast Mass: Suspect she can't have FNA while on Coumadin. Will ask surgery to comment 7. Analgesia: Percocet 8. Nausea: Zofran PRN 9. Advanced directives:Has MARSHAL. DNR
[2017-11-16] MEDS: Atorvastatin* 10 MG TAB PO SCH (16:56)
[2017-11-16] MEDS: Amitriptyline TAB* 25 MG PO SCH (21:35)
[2017-11-16] MEDS: Hydrocortisone 1% CREAM* 30 GM TUBE TOPICAL SCH (21:38)
[2017-11-17] MEDS: Levothyroxine TAB* 25 MCG TAB PO SCH (05:49)
[2017-11-17] MEDS: Omeprazole CAP* 20 MG PO SCH (05:49)
[2017-11-17 06:53] LABS: INR 3.59 (0.77-1.02)
[2017-11-17] MEDS: Sertraline* 50 MG TAB PO SCH (07:58)
[2017-11-17] MEDS: Docusate CAP* 100 MG PO SCH ×2 (07:58→21:28)
[2017-11-17] MEDS: UMECLIDIN INH SCH (07:59)
[2017-11-17] MEDS: [UNRECOGNIZED DRUG - OTHER] INH SCH (07:59)
[2017-11-17] MEDS: Hydrocortisone 1% CREAM* 30 GM TUBE TOPICAL SCH ×2 (07:59→21:28)
[2017-11-17] MEDS: Acetaminophen TAB* 325 MG PO PRN (10:36)
[2017-11-17] MEDS: Atorvastatin* 10 MG TAB PO SCH (16:18)
[2017-11-17] MEDS ORDERED: Warfarin TAB(*) 1 MG PO ONE (17:00)
[2017-11-17] MEDS: oxyCODONE/Acetamin 5/325 MG* TAB PO PRN ×2 (17:01→21:28)
--- NOTE | 2017-11-17 17:01 | PN ---
Progress Note Date of Service: 11/17/17 Note: JAVIER ZAMORA was visited. Therapy notes read and reviewed. INR below 4. Able to participate with therapy. She is tired but feels ok. Current Medications: Active Medications Generic Name Dose Route Start Last Admin Trade Name Freq PRN Reason Stop Dose Admin Acetaminophen 650 mg 11/13/17 15:17 11/17/17 10:36 Tylenol Tab* PO 650 mg Q6H PRN Administration FEVER/PAIN Amitriptyline HCl 25 mg 11/13/17 21:00 11/16/17 21:35 Elavil Tab* PO 25 mg BEDTIME MEHDI Administration Atorvastatin Calcium 10 mg 11/13/17 17:00 11/17/17 16:18 Lipitor* PO 10 mg 1700 MEHDI Administration Docusate Sodium 100 mg 11/13/17 21:00 11/17/17 07:58 Colace Cap* PO 100 mg BID MEHDI Administration Hydrocortisone 1 applic 11/16/17 21:00 11/17/17 07:59 Hytone Cream 1%* TOPICAL 1 applic BID MEHDI Administration Levothyroxine Sodium 25 mcg 11/14/17 06:00 11/17/17 05:49 Synthroid Tab* PO 25 mcg DAILY@0600 MEHDI Administration Magnesium Hydroxide 30 ml 11/13/17 15:17 Milk Of Magnesia Liq* PO Q6H PRN CONSTIPATION Omeprazole 40 mg 11/14/17 07:30 11/17/17 05:49 Prilosec Cap* PO 40 mg DAILY@0730 MEHDI Administration Ondansetron HCl 4 mg 11/16/17 10:29 11/16/17 11:01 Zofran Tab* PO 4 mg Q6H PRN Administration NAUSEA Oxycodone/Acetaminophen 1 tab 11/13/17 15:30 11/16/17 16:10 Percocet 5/325 Tab* PO 1 tab Q4H PRN Administration PAIN - MODERATE TO SEVERE Oxycodone/Acetaminophen 2 tab 11/13/17 15:31 11/16/17 21:36 Percocet 5/325 Tab* PO 2 tab Q4H PRN Administration PAIN - SEVERE Senna 2 tab 11/13/17 15:17 11/16/17 21:35 Senokot Tab* PO 2 tab BEDTIME PRN Administration CONSTIPATION Sertraline HCl 50 mg 11/14/17 09:00 11/17/17 07:58 Zoloft* PO 50 mg DAILY MEHDI Administration Temazepam 15 mg 11/13/17 15:29 Restoril Cap* PO BEDTIME PRN INSOMNIA Umeclidinium/Vilanterol 1 inh 11/14/17 09:00 11/17/17 07:59 Anoro 62.5/25 Ellipta Device (Nf) INH 1 inh DAILY MEHDI Administration Warfarin Sodium 1 mg 11/17/17 17:00 Coumadin Tab(*) PO 11/17/17 17:01 ONCE@1700 ONE Protocol Vital Signs: Vital Signs Temp Pulse Resp BP Pulse Ox 98.6 F 90 22 122/48 94 11/17/17 15:55 11/17/17 15:55 11/17/17 15:55 11/17/17 15:55 11/17/17 15:55 Lab Results: Laboratory Results - last 24 hr 11/17/17 06:25 INR (Anticoag Therapy) 3.59 H Exam: LUNGS: clear bilat HEART: Reg rhythm ABDOMEN: Soft +BS EXTREMITIES: RLE hip wound clean Assessment/Plan: 11/17/17 17:01 1. Right BETTINA: PT/OT. Therapy should be able to resume tomorrow 2. DVT Prophylaxis: Coumadin 1 mg today. Recheck INR in am 3. Hypothyroid: Synthroid 4. Hypotension: Holding HCTZ. 5. COPD: Supplemental O2. Anoro Ellipta 6. Breast Mass: Suspect she can't have FNA while on Coumadin. Will ask surgery to comment 7. Analgesia: Percocet 8. Nausea: Zofran PRN 9. Advanced directives:Has MOL. DNR
[2017-11-17] MEDS: Amitriptyline TAB* 25 MG PO SCH (21:29)
[2017-11-18] MEDS: Levothyroxine TAB* 25 MCG TAB PO SCH (05:17)
[2017-11-18 07:08] LABS: INR 3.15 (0.77-1.02)
[2017-11-18] MEDS: Omeprazole CAP* 20 MG PO SCH (07:10)
[2017-11-18] MEDS: Acetaminophen TAB* 325 MG PO PRN (08:36)
[2017-11-18] MEDS: Sertraline* 50 MG TAB PO SCH (08:36)
[2017-11-18] MEDS: Hydrocortisone 1% CREAM* 30 GM TUBE TOPICAL SCH ×2 (08:36→21:04)
[2017-11-18] MEDS: Docusate CAP* 100 MG PO SCH ×2 (08:36→21:04)
[2017-11-18] MEDS: [UNRECOGNIZED DRUG - OTHER] INH SCH (08:37)
[2017-11-18] MEDS: UMECLIDIN INH SCH (08:37)
--- NOTE | 2017-11-18 12:30 | PMRUTEAM ---
PMRU: Goals Current Status: Nursing: Current Status Skin Deviations [Bilateral Other Groin] Skin Deviations [Right Hip] Incision,Skin Tear Skin Deviation Description [ slightly reddened Bilateral Groin] Skin Deviation Description [ tegaderms in place to ST Right Hip] Bladder Current Status Continent, up to BSC with 1 CGA-min assist Bowel Current Status Continent, up to BSC with 1 CGA-min assist Last BM 11/18/17, taking colace Nutrition Current Status adequate Medication Current Status supervision Physical Therapy: Current Status Bed Mobility Assistance Contact Guard Assist,Min Assist Transfer Moblility Assistance Supervision Transfer/Bed Mobility Rolling Walker Recommended Devices Transfer Mobility Comment Pt. is able to perform a SPT using a 2 w/w S x 1. Ambulation Assistance Supervision Ambulation Assistive Devices Rolling Walker Number of Feet Patient 100 Ambulated Ambulation Comment Pt. presents a slightly antalgic short step reciprocal type gait Stairs Assistance Supervision Stairs Recommended Devices Two Rails Number of Stairs 5 Occupational Therapy: Current Status Upper Body Dressing Supervision Lower Body Dressing Min Assist Bathing Supervision Toileting Min Assist Toilet Transfer Contact Guard Assist Shower Transfer Contact Guard Assist Eating Ind with Adaptive Equip Rec Therapy: Current Status Summary of Assessment and RT assessment complete and pt. is aware of RT Clinical Impression services. Pt. has leisure material in her room and has been engaged in leisure visits. Treatment Goals Pt. will engage in leisure activities while on the unit. Treatment Plan Provide RT services and encourage involvement. Social Work: Current Status Discharge Plan return home with home care svs and family support Potential for Family Training pt's daughter is interested attending family training Anticipated Discharge Home Destination Discharge With VNS and family support Nutrition: Current Status Monitoring full nutrition assessment planned 11/23, as pt deemed at low nutritional risk. She is on a regular diet. Appetite is improving, as she is now eating 75-100% of meals. Wt is adequate and within healthy BMI range. Skin is intact. Bowel are regulating post-op 11/11. Note elevated LFTs, which was not noted on past labs - will follow w/ weekly labs (Fridays). Initial goals as outlined below. Goals: Physical Therapy: Initial Goals Bed Mobility Assistance Independent Transfer Mobility Assistance Independent Transfer/Bed Mobility Rolling Walker Recommended Devices Ambulation Independent Ambulation Recommended Devices Rolling Walker Ambulation Distance 150 Stairs Assistance Independent Stair Recommended Devices Two Rails Number of Stairs 5 Physical Therapy: Updated Goals Bed Mobility Assistance Independent Transfer Mobility Assistance Independent Transfer/Bed Mobility Rolling Walker Recommended Devices Ambulation Assistance Independent Ambulation Assistive Devices Rolling Walker Ambulation Distance (ft) 150 Stairs Assistance Independent Stairs Recommended Devices Two Rails Number of Stairs 5 Occupational Therapy: Initial Goals Goals to be Completed in (Days 7-10 days ) Upper Body Bathing Routine Modified Independent with Lower Body Bathing Routine Modified Independent with Upper Body Dressing Routine Independent Lower Body Dressing Routine Modified Independent with Toilet Hygeine and Clothing Independent Management Routine Toilet Transfer Routine Modified Independent with Tub Transfer Routine Modified Independent with Functional Transfers for ADL Modified Independent with Grooming Routine Modified Independent with Feeding Routine Modified Independent with Nursing: Goals Bladder Goal independent Bowel Goal independent Nutrition Goal 100% all meals Medication Goal independent Nutrition: Goals Intervention Goals 1. adequate po intake to support post-op healing and lean body mass 2. adequate po intake to promote stable wt; no evidence of wt loss 3. regulation of post-op bowel pattern; no c/o constipation (or diarrhea) Social Work: Goals Discharge Plan return home with home care svs and family support Potential for Family Training pt's daughter is interested attending family training Anticipated Discharge Home Destination Discharge With VNS and family support Care Plan: Care Plan ADL's - Improve/Maintain Start: 11/14/17 14:34 Freq: DAILY Status: Active Target: Protocol: Activity Type Activity Date Activity User E-Sign Co-Sign Detail Recorded Client Recorded Date Recorded By Document 11/14/17 14:34 [id number] [email or web address] 11/14/17 14:34 [id number] 11/14/17 14:34 PMRU Outcome: ADL's/ADL Transfers Orders/Interventions Occupational Therapy Evaluation & Treatment Device Yes Patient to receive OT 5x/wk for 60-120 Therex min/day Self Care Management Group Therapy Neuromuscular ReEducation UE/LE ADL's with Assist Yes ADL Transfers with Assist Yes Toileting: Transfers,Clothing Management Yes ,Hygeine w/Assist Light Kitchen/Laundry w/Assist Yes Progression Toward Outcome/Goals Progressing Cardiovascular-Improve/Maintain Start: 11/14/17 01:22 Freq: DAILY Status: Active Target: Protocol: Activity Type Activity Date Activity User E-Sign Co-Sign Detail Recorded Client Recorded Date Recorded By Document 11/18/17 09:25 [id number] 11/18/17 09:26 [id number] 11/18/17 09:25 Outcome: Cardiovascular Current Cardiovascular Outcome/Goal Maintain/ achieve baseline HR, BP , Perfusion Free of abnormal cardiac symptoms Progression Towards Outcome/Goal Progressing DVT Prophylaxis- Improve/Maintain Start: 11/14/17 11:02 Freq: DAILY Status: Active Target: Protocol: Activity Type Activity Date Activity User E-Sign Co-Sign Detail Recorded Client Recorded Date Recorded By Document 11/18/17 09:25 [id number] 11/18/17 09:26 [id number] 11/18/17 09:25 PMRU Outcome: DVT Prophylaxis Outcome/Goals Remains Free of DVT Free of complications from current DVT Complies with DVT Prophylaxis /Treatment TEDS Stockings on Every AM, Off at HS Progression Toward Outcome/Goals Progressing Discharge Planning - Improve/Maintain Start: 11/14/17 11:02 Freq: DAILY Status: Active Target: Protocol: Activity Type Activity Date Activity User E-Sign Co-Sign Detail Recorded Client Recorded Date Recorded By Document 11/18/17 09:25 [id number] 11/18/17 09:26 [id number] 11/18/17 09:25 PMRU Outcome: Discharge Planning Identify Patient Needs yes Update Patient Family No Outcome/Goals Demonstrates Understanding of Discharge Plan Homecare Referral - See Comment Progression Toward Outcome/Goals Progressing /GI-Improve/Maintain Start: 11/14/17 11:02 Freq: DAILY Status: Active Target: Protocol: Activity Type Activity Date Activity User E-Sign Co-Sign Detail Recorded Client Recorded Date Recorded By Document 11/18/17 09:25 [id number] 11/18/17 09:26 [id number] 11/18/17 09:25 PMRU Outcome: Genitourinary/ Gastrointestinal Genitourinary- Outcome/Goals Maintain/ Achieve Urinary Continence Maintain/ Achieve Adequate Urinary Output Remain Free of Hospital- Acquired UTI Gastrointestinal-Outcome/Goals Maintain/ Achieve Bowel Regularity in Accordance with Pt's Baseline Prevent Constipation Progression Toward Outcome/Goals - Progressing Progression Toward Outcome/Goals - GI Progressing Gastrointestinal-Improve/Maintain Start: 11/14/17 01:22 Freq: DAILY Status: Active Target: Protocol: Activity Type Activity Date Activity User E-Sign Co-Sign Detail Recorded Client Recorded Date Recorded By Document 11/18/17 09:25 [id number] 11/18/17 09:26 [id number] 11/18/17 09:25 Outcome: Gastrointestinal Outcome/Goals Maintain/ Achieve Bowel Regularity in Accordance with Pt's Baseline Remain Free of Emesis Progression Toward Outcome/Goals Progressing Mobility- Improve/Maintain Start: 11/13/17 17:51 Freq: DAILY Status: Active Target: Protocol: Activity Type Activity Date Activity User E-Sign Co-Sign Detail Recorded Client Recorded Date Recorded By Document 11/17/17 12:15 [id number] 11/17/17 12:15 [id number] 11/17/17 12:15 PMRU Outcome: Mobility Physical Therapy Evaluation and Yes Treatment Activity OOB with Assistance Yes WBAT Yes Device Yes Assistance Yes Patient to be seen 5x/wk for 60-120 min/ Therex day for: Mobility Training Gait Training Balance Outcome/Goals Maintain/ Achieve Baseline Mobility Status Improve Mobility Status Demonstrates Proper Use of Assistive Devices Free from Complications of Immobility Progression Toward Outcome/Goals Progressing Bed Mobility Yes: independent Transfers Yes: independent with RW Gait x ft Yes: independent with RW to 150' Up/Down Stairs Yes: independent up/ down 5 stairs with 2 rails. Pain/Comfort- Improve/Maintain Start: 11/14/17 11:02 Freq: DAILY Status: Active Target: Protocol: Activity Type Activity Date Activity User E-Sign Co-Sign Detail Recorded Client Recorded Date Recorded By Document 11/18/17 09:25 [id number] [email or web address] 11/18/17 09:26 [id number] 11/18/17 09:25 PMRU Outcome: Pain/Comfort Outcome/Goals Maintain Comfort Level Allowing Patient to Fully Participate in Rehab Progression Toward Outcome/Goals Progressing Outcome/Goals Met Comment Tylenol given Respiratory - Improve/Maintain Start: 11/14/17 11:02 Freq: DAILY Status: Active Target: Protocol: Activity Type Activity Date Activity User E-Sign Co-Sign Detail Recorded Client Recorded Date Recorded By Document 11/18/17 09:25 [id number] 11/18/17 09:26 [id number] 11/18/17 09:25 PMRU Outcome: Respiratory Does Patient Have a Trach No Outcome/Goals Maintain/ Improve O2 Sat per MD Order Maintain/ Improve Activity Tolerance Prevent Pneumonia/ Atelectasis Progression Toward Outcome/Goals Progressing Outcome/Goals Met Comment pt states uses O2 only at HS and when SOB Safety- Improve/Maintain Start: 11/14/17 11:02 Freq: DAILY Status: Active Target: Protocol: Activity Type Activity Date Activity User E-Sign Co-Sign Detail Recorded Client Recorded Date Recorded By Document 11/18/17 09:25 [id number] 11/18/17 09:26 [id number] 11/18/17 09:25 PMRU Outcome: Safety Outcome/Goals Remain Free of Injury or Harm Cooperates with Safety Measures for Least Restrictive Environment Prevent Falls/ Injury Progression Toward Outcome/Goals Progressing Skin- Improve/Maintain Start: 11/14/17 11:02 Freq: DAILY Status: Active Target: Protocol: Activity Type Activity Date Activity User E-Sign Co-Sign Detail Recorded Client Recorded Date Recorded By Document 11/18/17 09:25 [id number] 11/18/17 09:26 [id number] 11/18/17 09:25 PMRU Outcome: Skin Skin Risk Level Low Skin Orders Dressing Change Teach Patient Spenco Boots Heels Off Bed Turn/Position q2hr While in Bed Outcome/Goals Maintain/ Improve Skin Intergrity Free from Decubitus Surgical Incisions Healing Progression Toward Outcome/Goals Progressing Medicine Note: Length of Stay: 3 days Anticipated Discharge Destination: Home Tentative Discharge Date: 11/21/16 Discharged to: home
--- NOTE | 2017-11-18 15:30 | PN ---
Progress Note - Progress Note Date of Service: 11/18/17 Note: Surgery brief note: Patient was seen at bedside. Breast exam deferred at this time, will be performed by Dr. Blankenship tomorrow Patient notes right breast lump, has been present for over a year, has gotten bigger with time. Denies any nipple discharge or skin changes. Can not recall year of her last mammogram, all previous mammos have been normal. Labs notes, INR 3.15 today Imp/Plan: Per Dr. Blankenship, plan for FNA of right breast lump tomorrow, 11/19/2017 at bedside. Will repeat INR in the morning.
[2017-11-18] MEDS: Atorvastatin* 10 MG TAB PO SCH (15:34)
[2017-11-18] MEDS: oxyCODONE/Acetamin 5/325 MG* TAB PO PRN ×2 (15:34→21:04)
--- NOTE | 2017-11-18 16:23 | PN ---
Progress Note Date of Service: 11/18/17 Note: JAVIER ZAMORA was visited. Therapy notes read and reviewed. She was discussed in interdisciplinary team rounds. She has progressed well since resuming therapy. I spoke with surgeons about an FNA of right breast. Current Medications: Active Medications Generic Name Dose Route Start Last Admin Trade Name Freq PRN Reason Stop Dose Admin Acetaminophen 650 mg 11/13/17 15:17 11/18/17 08:36 Tylenol Tab* PO 650 mg Q6H PRN Administration FEVER/PAIN Amitriptyline HCl 25 mg 11/13/17 21:00 11/17/17 21:29 Elavil Tab* PO 25 mg BEDTIME MEHDI Administration Atorvastatin Calcium 10 mg 11/13/17 17:00 11/18/17 15:34 Lipitor* PO 10 mg 1700 MEHDI Administration Docusate Sodium 100 mg 11/13/17 21:00 11/18/17 08:36 Colace Cap* PO 100 mg BID MEHDI Administration Hydrocortisone 1 applic 11/16/17 21:00 11/18/17 08:36 Hytone Cream 1%* TOPICAL 1 applic BID MEHDI Administration Levothyroxine Sodium 25 mcg 11/14/17 06:00 11/18/17 05:17 Synthroid Tab* PO 25 mcg DAILY@0600 MEHDI Administration Magnesium Hydroxide 30 ml 11/13/17 15:17 Milk Of Magnesia Liq* PO Q6H PRN CONSTIPATION Omeprazole 40 mg 11/14/17 07:30 11/18/17 07:10 Prilosec Cap* PO 40 mg DAILY@0730 MEHDI Administration Ondansetron HCl 4 mg 11/16/17 10:29 11/16/17 11:01 Zofran Tab* PO 4 mg Q6H PRN Administration NAUSEA Oxycodone/Acetaminophen 1 tab 11/13/17 15:30 11/18/17 15:34 Percocet 5/325 Tab* PO 1 tab Q4H PRN Administration PAIN - MODERATE TO SEVERE Oxycodone/Acetaminophen 2 tab 11/13/17 15:31 11/17/17 21:28 Percocet 5/325 Tab* PO 2 tab Q4H PRN Administration PAIN - SEVERE Pharmacy Profile Note 1 note 11/18/17 17:00 Coumadin Daily Reminder* FOLLOW UP 1700 MEHDI Senna 2 tab 11/13/17 15:17 11/16/17 21:35 Senokot Tab* PO 2 tab BEDTIME PRN Administration CONSTIPATION Sertraline HCl 50 mg 11/14/17 09:00 11/18/17 08:36 Zoloft* PO 50 mg DAILY MEHDI Administration Temazepam 15 mg 11/13/17 15:29 Restoril Cap* PO BEDTIME PRN INSOMNIA Umeclidinium/Vilanterol 1 inh 11/14/17 09:00 11/18/17 08:37 Anoro 62.5/25 Ellipta Device (Nf) INH 1 inh DAILY MEHDI Administration Warfarin Sodium 1 mg 11/18/17 17:00 Coumadin Tab(*) PO DAILY@1700 [facility] Protocol Vital Signs: Vital Signs Temp Pulse Resp BP Pulse Ox 98.0 F 96 18 137/57 99 11/18/17 15:27 11/18/17 15:27 11/18/17 15:40 11/18/17 15:27 11/18/17 15:40 Lab Results: Laboratory Results - last 24 hr 11/18/17 06:46 INR (Anticoag Therapy) 3.15 H Exam: LUNGS: clear bilat HEART: Reg rhythm ABDOMEN: Soft +BS EXTREMITIES: RLE hip wound clean Assessment/Plan: 11/18/17 16:23 1. Right BETTINA: PT/OT. Therapy resumed 2. DVT Prophylaxis: Coumadin 1 mg today. Recheck INR in am 3. Hypothyroid: Synthroid 4. Hypotension: Holding HCTZ. 5. COPD: Supplemental O2. Anoro Ellipta 6. Breast Mass: Will likely have FNA tomorrow 7. Analgesia: Percocet 8. Nausea: Zofran PRN 9. Advanced directives:Has MARSHAL. DNR
[2017-11-18] MEDS: Warfarin TAB(*) 1 MG PO SCH (16:53)
[2017-11-18] MEDS: Amitriptyline TAB* 25 MG PO SCH (21:04)
[2017-11-19] MEDS: Levothyroxine TAB* 25 MCG TAB PO SCH (05:35)
[2017-11-19] MEDS: Omeprazole CAP* 20 MG PO SCH (05:35)
[2017-11-19 08:02] LABS: INR 3.02 (0.77-1.02)
[2017-11-19] MEDS: Sertraline* 50 MG TAB PO SCH (08:17)
[2017-11-19] MEDS: Acetaminophen TAB* 325 MG PO PRN (08:17)
[2017-11-19] MEDS: Hydrocortisone 1% CREAM* 30 GM TUBE TOPICAL SCH ×2 (08:17→21:19)
[2017-11-19] MEDS: Docusate CAP* 100 MG PO SCH ×2 (08:17→21:18)
[2017-11-19] MEDS: UMECLIDIN INH SCH (08:18)
[2017-11-19] MEDS: [UNRECOGNIZED DRUG - OTHER] INH SCH (08:18)
--- NOTE | 2017-11-19 11:13 | CONSULT ---
Consult Consult: Surgery Consult Asked by Dr. Montesinos and Dr. Paige to evaluate a pt. with a breast lump for consideration for biopsy while in hospital. Ms. Bobby is an 87 y.o. female who reports that she first noticed a lump in her right breast about a year ago. Since then the lump has increased in size and started to change the shape of the breast. She didn't think there was anything to do about it but during testing for her heart she was told she had this lump and she should have it evaluated. She was planning to have hip surgery so wanted to have the testing done at the same time. She denies h/o breast biopsy, she denies h/o XRT to chest. PMHx: COPD, h/o CVA, GERD, HTN Meds: see med rec, includes coumadin ALL: codeine, tiotropium, trazodone FH: paternal first cousin had breast cancer in her 70s, no FH of ovarian cancer PE: general: WDWN elderly female in NAD HEENT: neg cervical or supraclavicular adenopathy Breasts: Asymmetric with obvious deformity of the right breast. The deformity involves the nipple areolar complex; there is some evidence of erosion through the skin near the nipple. Palpation of the right breast reveals a large (>3 cm) mass that is firm and irregular in the lower inner quadrant extending to the central breast. Palpation of the left breast reveals no discrete masses. A/P: Probable breast cancer. I have advised FNA which can be done today, I discussed with Dr. Martinez. Ms. Bobby is interested in limited therapy only and is hopeful that the tumor will be ER/IN positive so she can go on Tamoxifen or other hormonal treatment. CLFoster
[2017-11-19] MEDS: oxyCODONE/Acetamin 5/325 MG* TAB PO PRN ×2 (13:51→21:18)
--- NOTE | 2017-11-19 16:47 | PN ---
Progress Note Date of Service: 11/19/17 Note: JAVIER ZAMORA was visited. Therapy notes read and reviewed. She was seen by Dr. Blankenship today and had an FNA done by Dr. Martinez. Reading is breast cancer. receptor staining pending. She is going on with therapy and hopefully home on Friday Current Medications: Active Medications Generic Name Dose Route Start Last Admin Trade Name Freq PRN Reason Stop Dose Admin Acetaminophen 650 mg 11/13/17 15:17 11/19/17 08:17 Tylenol Tab* PO 650 mg Q6H PRN Administration FEVER/PAIN Amitriptyline HCl 25 mg 11/13/17 21:00 11/18/17 21:04 Elavil Tab* PO 25 mg BEDTIME MEHDI Administration Atorvastatin Calcium 10 mg 11/13/17 17:00 11/18/17 15:34 Lipitor* PO 10 mg 1700 MEHDI Administration Docusate Sodium 100 mg 11/13/17 21:00 11/19/17 08:17 Colace Cap* PO 100 mg BID MEHDI Administration Hydrocortisone 1 applic 11/16/17 21:00 11/19/17 08:17 Hytone Cream 1%* TOPICAL 1 applic BID MEHDI Administration Levothyroxine Sodium 25 mcg 11/14/17 06:00 11/19/17 05:35 Synthroid Tab* PO 25 mcg DAILY@0600 MEHDI Administration Magnesium Hydroxide 30 ml 11/13/17 15:17 Milk Of Magnesia Liq* PO Q6H PRN CONSTIPATION Omeprazole 40 mg 11/14/17 07:30 11/19/17 05:35 Prilosec Cap* PO 40 mg DAILY@0730 MEHDI Administration Ondansetron HCl 4 mg 11/16/17 10:29 11/16/17 11:01 Zofran Tab* PO 4 mg Q6H PRN Administration NAUSEA Oxycodone/Acetaminophen 1 tab 11/13/17 15:30 11/19/17 13:51 Percocet 5/325 Tab* PO 1 tab Q4H PRN Administration PAIN - MODERATE TO SEVERE Oxycodone/Acetaminophen 2 tab 11/13/17 15:31 11/18/17 21:04 Percocet 5/325 Tab* PO 2 tab Q4H PRN Administration PAIN - SEVERE Pharmacy Profile Note 1 note 11/18/17 17:00 11/18/17 20:13 Coumadin Daily Reminder* FOLLOW UP 1 note 1700 MEHDI Administration Senna 2 tab 11/13/17 15:17 11/16/17 21:35 Senokot Tab* PO 2 tab BEDTIME PRN Administration CONSTIPATION Sertraline HCl 50 mg 11/14/17 09:00 11/19/17 08:17 Zoloft* PO 50 mg DAILY MEHDI Administration Temazepam 15 mg 11/13/17 15:29 Restoril Cap* PO BEDTIME PRN INSOMNIA Umeclidinium/Vilanterol 1 inh 11/14/17 09:00 11/19/17 08:18 Anoro 62.5/25 Ellipta Device (Nf) INH 1 inh DAILY MEHDI Administration Warfarin Sodium 1 mg 11/18/17 17:00 11/18/17 16:53 Coumadin Tab(*) PO 1 mg DAILY@1700 MEHDI Administration Protocol Vital Signs: Vital Signs Temp Pulse Resp BP Pulse Ox 98.1 F 89 18 132/72 100 11/19/17 15:40 11/19/17 15:40 11/19/17 16:11 11/19/17 15:40 11/19/17 16:11 Lab Results: Laboratory Results - last 24 hr 11/19/17 06:43 INR (Anticoag Therapy) 3.02 H Exam: LUNGS: clear bilat HEART: Reg rhythm ABDOMEN: Soft +BS EXTREMITIES: RLE hip wound clean Assessment/Plan: 11/18/17 16:23 1. Right BETTINA: PT/OT. 2. DVT Prophylaxis: Coumadin 1 mg today. recheck INR Friday 3. Hypothyroid: Synthroid 4. Hypotension: Holding HCTZ. 5. COPD: Supplemental O2. Anoro Ellipta 6. Breast Cancer: Await final path to explore treatment options 7. Analgesia: Percocet 8. Nausea: Zofran PRN 9. Advanced directives:Has MOLST. DNR 11/19/17 16:47
[2017-11-19] MEDS: Atorvastatin* 10 MG TAB PO SCH (17:23)
[2017-11-19] MEDS: Warfarin TAB(*) 1 MG PO SCH (17:23)
[2017-11-19] MEDS: Amitriptyline TAB* 25 MG PO SCH (21:18)
[2017-11-20] MEDS: Omeprazole CAP* 20 MG PO SCH (06:25)
[2017-11-20] MEDS: Levothyroxine TAB* 25 MCG TAB PO SCH (06:25)
[2017-11-20] MEDS: Docusate CAP* 100 MG PO SCH ×2 (08:22→20:16)
[2017-11-20] MEDS: Sertraline* 50 MG TAB PO SCH (08:22)
[2017-11-20] MEDS: Hydrocortisone 1% CREAM* 30 GM TUBE TOPICAL SCH ×2 (08:22→21:04)
[2017-11-20] MEDS: UMECLIDIN INH SCH (08:30)
[2017-11-20] MEDS: [UNRECOGNIZED DRUG - OTHER] INH SCH (08:30)
[2017-11-20] MEDS: Acetaminophen TAB* 325 MG PO PRN (08:31)
[2017-11-20] MEDS: oxyCODONE/Acetamin 5/325 MG* TAB PO PRN ×2 (13:59→20:18)
--- NOTE | 2017-11-20 16:35 | PN ---
Progress Note Date of Service: 11/20/17 Note: JAVIER ZAMORA was visited. Therapy notes read and reviewed. She did well today and is going home tomorrow. Her wound is healing. Current Medications: Active Medications Generic Name Dose Route Start Last Admin Trade Name Freq PRN Reason Stop Dose Admin Acetaminophen 650 mg 11/13/17 15:17 11/20/17 08:31 Tylenol Tab* PO 650 mg Q6H PRN Administration FEVER/PAIN Amitriptyline HCl 25 mg 11/13/17 21:00 11/19/17 21:18 Elavil Tab* PO 25 mg BEDTIME MEHDI Administration Atorvastatin Calcium 10 mg 11/13/17 17:00 11/19/17 17:23 Lipitor* PO 10 mg 1700 MEHDI Administration Docusate Sodium 100 mg 11/13/17 21:00 11/20/17 08:22 Colace Cap* PO 100 mg BID MEHDI Administration Hydrocortisone 1 applic 11/16/17 21:00 11/20/17 08:22 Hytone Cream 1%* TOPICAL 1 applic BID MEHDI Administration Levothyroxine Sodium 25 mcg 11/14/17 06:00 11/20/17 06:25 Synthroid Tab* PO 25 mcg DAILY@0600 MEHDI Administration Magnesium Hydroxide 30 ml 11/13/17 15:17 Milk Of Magnesia Liq* PO Q6H PRN CONSTIPATION Omeprazole 40 mg 11/14/17 07:30 11/20/17 06:25 Prilosec Cap* PO 40 mg DAILY@0730 MEHDI Administration Ondansetron HCl 4 mg 11/16/17 10:29 11/16/17 11:01 Zofran Tab* PO 4 mg Q6H PRN Administration NAUSEA Oxycodone/Acetaminophen 1 tab 11/13/17 15:30 11/20/17 13:59 Percocet 5/325 Tab* PO 1 tab Q4H PRN Administration PAIN - MODERATE TO SEVERE Oxycodone/Acetaminophen 2 tab 11/13/17 15:31 11/19/17 21:18 Percocet 5/325 Tab* PO 2 tab Q4H PRN Administration PAIN - SEVERE Pharmacy Profile Note 1 note 11/18/17 17:00 11/19/17 17:23 Coumadin Daily Reminder* FOLLOW UP 1 note 1700 MEHDI Administration Senna 2 tab 11/13/17 15:17 11/16/17 21:35 Senokot Tab* PO 2 tab BEDTIME PRN Administration CONSTIPATION Sertraline HCl 50 mg 11/14/17 09:00 11/20/17 08:22 Zoloft* PO 50 mg DAILY MEHDI Administration Temazepam 15 mg 11/13/17 15:29 Restoril Cap* PO BEDTIME PRN INSOMNIA Umeclidinium/Vilanterol 1 inh 11/14/17 09:00 11/20/17 08:30 Anoro 62.5/25 Ellipta Device (Nf) INH 1 inh DAILY MEHDI Administration Warfarin Sodium 1 mg 11/18/17 17:00 11/19/17 17:23 Coumadin Tab(*) PO 1 mg DAILY@1700 MEHDI Administration Protocol Vital Signs: Vital Signs Temp Pulse Resp BP Pulse Ox 98.2 F 93 18 144/78 96 11/20/17 15:43 11/20/17 15:43 11/20/17 15:43 11/20/17 15:43 11/20/17 15:43 Exam: LUNGS: clear bilat HEART: Reg rhythm ABDOMEN: Soft +BS EXTREMITIES: RLE hip wound clean. Some ecchymoses Assessment/Plan: 11/20/17 16:35 1. Right BETTINA: PT/OT. 2. DVT Prophylaxis: Coumadin 1 mg today. recheck INR Friday 3. Hypothyroid: Synthroid 4. Hypotension: Better. Resume HCTZ. 5. COPD: Supplemental O2. Anoro Ellipta 6. Breast Cancer: Await final path to explore treatment options 7. Analgesia: Percocet 8. Nausea: Zofran PRN 9. Advanced directives:Has MOLST. DNR
[2017-11-20] MEDS: Atorvastatin* 10 MG TAB PO SCH (16:55)
[2017-11-20] MEDS: Warfarin TAB(*) 1 MG PO SCH (16:56)
[2017-11-20] MEDS: Amitriptyline TAB* 25 MG PO SCH (20:17)
[2017-11-21] MEDS: Omeprazole CAP* 20 MG PO SCH (06:39)
[2017-11-21] MEDS: Levothyroxine TAB* 25 MCG TAB PO SCH (06:40)
[2017-11-21 06:52] LABS: ABS Basophils 0 10^3/ul (0-0.2); ABS Eosinophils 0.5 10^3/ul (0-0.6); ABS Lymphocytes 2.4 10^3/ul (1.0-4.8); ABS Monocytes 0.9 10^3/ul (0-0.8); ABS Neutrophils 4.4 10^3/ul (1.5-7.7); ABS Nucleated RBC 0 10^3/ul; Eosinophil % 6.5 % (0-6); Hematocrit 31 % (35-47); Hemoglobin 10.7 g/dl (12.0-16.0); Lymphocyte % 29.1 % (25-47); Mean Corpuscular HGB Conc 34 g/dl (31-36); Mean Corpuscular Hemoglobin 33 pg (27-31); Mean Corpuscular Volume 95 fL (80-97); Mean Platelet Volume 7 um3 (7.4-10.4); Nucleated Red Blood Cells % 0; Platelet Count 351 10^3/ul (150-450); Red Blood Count 3.26 10^6/ul (4.0-5.4); Red Cell Distribution Width 14 % (10.5-15); White Blood Count 8.3 10^3/ul (3.5-10.8)
[2017-11-21 06:55] LABS: INR 1.79 (0.77-1.02)
[2017-11-21 07:07] LABS: EGFR Non-African American 98.3 (>60)
[2017-11-21 07:25] VITALS: BP 150/76
[2017-11-21] MEDS: Docusate CAP* 100 MG PO SCH (07:40)
[2017-11-21] MEDS: [UNRECOGNIZED DRUG - OTHER] INH SCH (07:40)
[2017-11-21] MEDS: Sertraline* 50 MG TAB PO SCH (07:40)
[2017-11-21] MEDS: UMECLIDIN INH SCH (07:40)
[2017-11-21] MEDS: Hydrocortisone 1% CREAM* 30 GM TUBE TOPICAL SCH (08:56)
[2017-11-21] MEDS: oxyCODONE/Acetamin 5/325 MG* TAB PO PRN (09:46)
--- NOTE | 2017-11-21 10:55 | PN ---
Progress Note Date of Service: 11/21/17 Note: JAVIER ZAMORA was visited. Therapy and nursing notes read and reviewed. She is eager to go home today. No chest pain, shortness of breath or abdominal pain. Nursing notes a clear suture protruding from the skin. Current Medications: Active Medications Generic Name Dose Route Start Last Admin Trade Name Freq PRN Reason Stop Dose Admin Acetaminophen 650 mg 11/13/17 15:17 11/20/17 08:31 Tylenol Tab* PO 650 mg Q6H PRN Administration FEVER/PAIN Amitriptyline HCl 25 mg 11/13/17 21:00 11/20/17 20:17 Elavil Tab* PO 25 mg BEDTIME MEHDI Administration Atorvastatin Calcium 10 mg 11/13/17 17:00 11/20/17 16:55 Lipitor* PO 10 mg 1700 MEHDI Administration Docusate Sodium 100 mg 11/13/17 21:00 11/21/17 07:40 Colace Cap* PO 100 mg BID MEHDI Administration Hydrocortisone 1 applic 11/16/17 21:00 11/21/17 08:56 Hytone Cream 1%* TOPICAL 1 applic BID MEHDI Administration Levothyroxine Sodium 25 mcg 11/14/17 06:00 11/21/17 06:40 Synthroid Tab* PO 25 mcg DAILY@0600 MEHDI Administration Magnesium Hydroxide 30 ml 11/13/17 15:17 Milk Of Magnesia Liq* PO Q6H PRN CONSTIPATION Omeprazole 40 mg 11/14/17 07:30 11/21/17 06:39 Prilosec Cap* PO 40 mg DAILY@0730 MEHDI Administration Ondansetron HCl 4 mg 11/16/17 10:29 11/16/17 11:01 Zofran Tab* PO 4 mg Q6H PRN Administration NAUSEA Oxycodone/Acetaminophen 1 tab 11/13/17 15:30 11/21/17 09:46 Percocet 5/325 Tab* PO 1 tab Q4H PRN Administration PAIN - MODERATE TO SEVERE Oxycodone/Acetaminophen 2 tab 11/13/17 15:31 11/20/17 20:18 Percocet 5/325 Tab* PO 2 tab Q4H PRN Administration PAIN - SEVERE Pharmacy Profile Note 1 note 11/18/17 17:00 11/20/17 16:56 Coumadin Daily Reminder* FOLLOW UP 1 note 1700 MEHDI Administration Senna 2 tab 11/13/17 15:17 11/16/17 21:35 Senokot Tab* PO 2 tab BEDTIME PRN Administration CONSTIPATION Sertraline HCl 50 mg 11/14/17 09:00 11/21/17 07:40 Zoloft* PO 50 mg DAILY MEHDI Administration Temazepam 15 mg 11/13/17 15:29 Restoril Cap* PO BEDTIME PRN INSOMNIA Umeclidinium/Vilanterol 1 inh 11/14/17 09:00 11/21/17 07:40 Anoro 62.5/25 Ellipta Device (Nf) INH 1 inh DAILY MEHDI Administration Warfarin Sodium 1 mg 11/18/17 17:00 11/20/17 16:56 Coumadin Tab(*) PO 1 mg DAILY@1700 MEHDI Administration Protocol Vital Signs: Vital Signs Temp Pulse Resp BP Pulse Ox 98.7 F 88 16 150/76 100 11/21/17 06:49 11/21/17 07:05 11/21/17 09:46 11/21/17 07:05 11/21/17 06:49 Lab Results: Laboratory Results - last 24 hr 11/21/17 11/21/17 11/21/17 06:06 06:06 06:06 WBC 8.3 RBC 3.26 L Hgb 10.7 L Hct 31 L MCV 95 MCH 33 H MCHC 34 RDW 14 Plt Count 351 MPV 7 L Neut % (Auto) 53.2 Lymph % (Auto) 29.1 Rhea % (Auto) 10.7 H Eos % (Auto) 6.5 H Baso % (Auto) 0.5 Absolute Neuts (auto) 4.4 Absolute Lymphs (auto) 2.4 Absolute Monos (auto) 0.9 H Absolute Eos (auto) 0.5 Absolute Basos (auto) 0 Absolute Nucleated RBC 0 Nucleated RBC % 0 INR (Anticoag Therapy) 1.79 H Sodium 140 Potassium 3.9 Chloride 106 Carbon Dioxide 29 Anion Gap 5 BUN 13 Creatinine 0.58 Est GFR ( Amer) 126.5 Est GFR (Non-Af Amer) 98.3 BUN/Creatinine Ratio 22.4 H Glucose 93 Calcium 8.2 L Total Bilirubin 0.30 AST 26 ALT 27 Alkaline Phosphatase 102 Total Protein 4.9 L Albumin 2.6 L Globulin 2.3 Albumin/Globulin Ratio 1.1 Exam: Exam: GEN: no acute distress. alert and appropriate. LUNGS: clear bilaterally HEART: Regular rate and rhythm ABDOMEN: Soft, +BS, non-tender, non-distended EXTREMITIES: RLE hip wound clean with incision glued. About 1 inch below incision there is a clear resorbable suture protruding through the skin. I snipped the end of it without complication. There was no knot on it but was still obviously tethered under the skin. Assessment/Plan: IMPRESSION/PLAN: 87yo woman with right hip replacement. 1. Right BETTINA: f/u with Dr. Gee. Hip precautions. 2. DVT Prophylaxis: Continue Coumadin 1 mg qday. recheck INR Friday 3. Hypothyroid: Synthroid 4. Hypotension: Resumed HCTZ. 5. COPD: Supplemental O2 as at home. Mary Grace Medley 6. Breast Cancer: Await final path to explore treatment options. f/u with Dr. Blankenship and PCP. 7. Analgesia: Percocet prn 8. Nausea: Zofran PRN 9. Advanced directives:Elida CARNES DNR 10: Dispo: discharge home today. 11/21/17 10:56
--- NOTE | 2017-11-22 10:16 | DS ---
CC: Dr. Lencho Montesinos; Dr. Gee; Dr. Blankenship REHABILITATION DISCHARGE SUMMARY: DATE OF ADMISSION: 11/13/17 DATE OF DISCHARGE: 11/21/17 PRIMARY CARE PROVIDER: Dr. Lencho Montesinos. ORTHOPEDIC SURGEON: Dr. Gee. SURGEON: Dr. Blankenship. REASON FOR ADMISSION: Right hip replacement. HISTORY OF PRESENT ILLNESS: For full details of her acute hospitalization leading up to her admission, please see the note dictated by Dr. Paige on 10/30. HOSPITAL COURSE: During her time on the PMRU, she had requested if it was possible to have a fine needle aspiration of a breast mass that had been discovered as an outpatient. She was seen by Dr. Blankenship on 11/19/17 and was felt to probably have breast cancer. She arranged for fine needle aspiration to be done by Dr. Martinez. Initial pathology was consistent with ductal adenocarcinoma. Immunohistochemical stains were completed, showing ER moderate- to-strongly positive in 85% of tumor cells, SD hfrquooxps-[id number] positive in approximately 10% of tumor cells, and HER2/giuliana 3+ positive. She will need follow up regarding these results with her primary care provider and Dr. Blankenship. Ultimately she probably needs referral to Oncology but she plans to discuss this with Dr. Montesinos next week. On the rehabilitation unit, she had participated with Physical Therapy, and at the time of discharge was independent with bed mobility, transfers using a two-wheeled walker, ambulation for 150 feet using a two-wheeled walker, climbing 5 steps using 1 or 2 rails, and with her home exercise program. She knows her hip precautions. She also participated with Occupational Therapy and at the time of discharge is independent with eating. She requires supervision using a tub bench and long- handled sponge for bathing, and tub transfers. Dressing can be done with set up and supervision using a sock aid and shop firer/fireman. She can independently toilet and do toilet transfers using a walker and over the toilet commode. She will initially need assistance with home management and cooking. Family came in for training to assist her as needed. On the acute care service, she had some hypotension. Her blood pressure has been mildly elevated on the PMRU and therefore she is allowed to resume her hydrochlorothiazide at discharge. For DVT prophylaxis, she was initially supratherapeutic with her INR. On 11/20/17, she restarted 1 mg of Coumadin. Her INR today is 1.79 and she will need another INR on Friday and subsequently checked twice per week with results going to Dr. Gee. She was continued on her regular supplemental oxygen for COPD. Her pain has been well controlled with Percocet on an as needed basis. DISCHARGE MEDICATIONS: 1. Amitriptyline 25 mg q.h.s. 2. Atorvastatin 10 mg q.p.m. 3. Levothyroxine 25 mcg q.day. 4. Percocet 5/325, 1 to 2 tablets q.4 hours p.r.n. pain, maximum daily dose is 4. 5. Sertraline 50 mg q.day. 6. Anoro/Ellipta 62.5/25, one inhaled q.day. 7. Coumadin 1 mg q.p.m. or as directed 8. Pantoprazole 40 mg q.a.m. 9. Hydrochlorothiazide 25 mg q.a.m. She is to stay off of aspirin until she is off of Coumadin. DISCHARGE DIAGNOSES: 1. Breast ductal adenocarcinoma - new diagnosis 2. Right total hip arthroplasty secondary to osteoarthritis 3. Chronic obstructive pulmonary disease 4. Gastroesophageal reflux disease 5. Hypothyroidism 6. Hypertension DISCHARGE CONDITION: Good. DISCHARGE DISPOSITION: Home with family assistance. FOLLOWUP: 1. A referral has been sent to visiting nurse services for home care, physical therapy, occupational therapy, and blood draws including INR every Friday and with results to Dr. Gee for adjustment of coumadin. 2. Follow up with Dr. Gee next week. 3. Follow up with Dr. Blankenship within 1 to 2 weeks. 4. Follow up with Dr. Lencho Montesinos within 1 to 2 weeks. [id number]/[facility] #: [id number] [place]
== END 2017-11-21 13:00 | disposition home health service (06) | DRG 561 ==
LOC: PMRU 14:01
PROVIDERS: ADMIT Physical Medicine & Rehabilitation; ATTEND Physical Medicine & Rehabilitation
PROC: F07Z5ZZ Bed Mobility Treatment (ICD-10-PCS; principal; 2017-11-13)
PROC: F07Z9ZZ Gait Training/Functional Ambulation Treatment (ICD-10-PCS; 2017-11-13)
PROC: F07Z8ZZ Transfer Training Treatment (ICD-10-PCS; 2017-11-13)
PROC: F08Z0ZZ Bathing/Showering Techniques Treatment (ICD-10-PCS; 2017-11-13)
PROC: F08Z1ZZ Dressing Techniques Treatment (ICD-10-PCS; 2017-11-13)
PROC: F08Z3ZZ Feeding/Eating Treatment (ICD-10-PCS; 2017-11-13)
PROC: 0H9T3ZX Drainage of Right Breast, Percutaneous Approach, Diagnostic (ICD-10-PCS; 2017-11-19)
DX: Z47.1 Aftercare following joint replacement surgery (principal); I95.9 Hypotension, unspecified; J44.9 Chronic obstructive pulmonary disease, unspecified; C50.919 Malignant neoplasm of unspecified site of unspecified female breast; C50.011 Malignant neoplasm of nipple and areola, right female breast; Z96.641 Presence of right artificial hip joint; K21.9 Gastro-esophageal reflux disease without esophagitis; E03.9 Hypothyroidism, unspecified; I10 Essential (primary) hypertension; Z86.73 Personal history of transient ischemic attack (TIA), and cerebral infarction without residual deficits; Z79.01 Long term (current) use of anticoagulants; Z79.899 Other long term (current) drug therapy; Z88.6 Allergy status to analgesic agent; Z88.5 Allergy status to narcotic agent; Z88.8 Allergy status to other drugs, medicaments and biological substances; Z66 Do not resuscitate; R20.0 Anesthesia of skin; Z17.0 Estrogen receptor positive status [ER+]
CPT/HCPCS: 10021; 36415; 80053; 85025; 85610; 88172; 88173; 88305; 88360; 94760; A9270-GY

== ENCOUNTER 2018-08-28 06:34 | Observation (INO) | payer MEDICAID, MEDICARE ==
--- NOTE | 2018-08-12 15:49 | HP ---
AMENDED REPORT NOW INCLUDES DESIGNATED COSIGNER CC: Dr. Lencho Montesinos; Dr. Madelin Clemons * PREOPERATIVE HISTORY AND PHYSICAL: DATE OF ADMISSION/SURGERY: 08/28/18 This patient is scheduled for same-day surgery with overnight observation extension by Dr. Blankenship on 08/28/18. DATE OF PREOPERATIVE HISTORY AND PHYSICAL EXAMINATION: 08/12/18. ATTENDING SURGEON: Dr. Tg Blankenship * (dictated by Fariba Stuart NP). CHIEF COMPLAINT: Right breast cancer. HISTORY OF PRESENT ILLNESS: The patient is an 88-year-old female, who was undergoing rehabilitation after right hip replacement in October 2017, when a right breast cancer was identified. It was biopsied with a fine needle aspiration in November 2017 and was ER/NJ positive. The patient was not initially sure she wanted to undergo any more surgery; she was treated with neoadjuvant Herceptin and aromatase inhibitor by Dr. Clemons starting in December 2017 and now would like to consider surgical therapy. She denies any previous breast problems; she has never had radiation to the chest; she has a paternal first cousin, who had breast cancer and there is family history of ovarian cancer. She was on hormone replacement therapy for 9 years until 2008. She was age 12 with menarche and 49 at menopause; first child born at age 22 and she did not breastfeed. Dr. Blankenship has examined the patient and notes locally advanced right breast cancer, which has partially responded to neoadjuvant aromatase inhibitor and Herceptin. Dr. Blankenship explained to the patient that she would benefit from a right mastectomy to prevent heather erosion through the skin. Dr. Blankenship discussed the nature of the surgical procedure, the relevant risks, benefits, and alternatives. Today, I reviewed the overnight stay in the hospital, the use of a Brien-Contreras drain and an arm sling, and reviewed the expected recovery with the patient and her daughter. The patient and her daughter have had a chance to ask questions and stated that they understand the information and are satisfied with the answers given to their questions. The patient will sign surgical consent on the day of surgery. PAST MEDICAL HISTORY: Significant for hypertension, COPD, small stroke in 2008 resulting in mild left-sided weakness and she uses a cane, hypothyroidism, hyperlipidemia, GERD, and anxiety. She is followed for primary care by Dr. Mohan Montesinos. PAST SURGICAL HISTORY: Right hip replacement by Dr. Gee, 11/11/17; cholecystectomy around 1994; and cataract removal. MEDICATIONS: 1. Aspirin enteric-coated 325 mg p.o. daily, which she will hold 5 days preoperatively. 2. Anoro Ellipta 62.5/25 mcg per inhalation inhale 1 puff daily. 3. ProAir HFA 108 mcg per actuation 2 puffs every 4 hours p.r.n. 4. Levothyroxine 25 mcg p.o. daily. 5. Hydrochlorothiazide 25 mg p.o. daily. 6. Zolpidem 10 mg p.o. at bedtime p.r.n. 7. Pantoprazole 40 mg p.o. daily. 8. Fluticasone 2 sprays in each nostril daily p.r.n. 9. Sertraline 50 mg 1 tablet p.o. daily. 10. Amitriptyline 25 mg 1 to 2 tablets at bedtime p.r.n. 11. Atorvastatin 10 mg p.o. daily. 12. Calcium and vitamin D3 supplement daily. 13. Vitamin C 500 mg daily. 14. Centrum Silver 1 tablet daily. 15. AREDS2 eye vitamins 1 p.o. b.i.d. 16. Oxygen 2 L at night. 17. Anastrozole 1 mg daily. 18. Herceptin as directed by Dr. Clemons. 19. Zofran ODT 4 mg q.6 hours p.r.n. nausea. 20. Senna laxative 1 tablet at bedtime as needed. ALLERGIES: SPIRIVA caused hives, TYLENOL WITH CODEINE causes confusion, and TRAZODONE caused confusion. FAMILY HISTORY: Paternal cousin had breast cancer diagnosed at age 74. No family history of ovarian cancer. No known anesthesia complications, bleeding tendencies, or clotting disorders in the family. SOCIAL HISTORY: She is . Her daughter accompanied her to the visit today and lives close by. The patient does live alone; she is in an independent chcf apartment; she is a former smoker, who quit 32 years ago. She denies the use of alcohol or other substances. REVIEW OF SYSTEMS: Constitutional: No fevers, chills, excessive fatigue, or weight loss. Endocrine: No diabetes; she is on thyroid replacement for hypothyroidism. Hematologic: No easy bruising or bleeding. No history of blood transfusions. Breasts: As described in history of present illness. The central portion of the right breast is contracted inwards with a 2 cm protrusion at the area of the nipple, which is not visible. There is some evidence of recent excoriation, but no open areas at present. Deep to the contracted area, there is a large area of hard tissue consistent with breast cancer. This seems to be approximately 4 to 5 cm in diameter. Left breast, no discrete masses to palpation. Nipple appears normal. Respiratory: History of COPD. No history of pneumonia. She quit smoking in 1983. She denies any dyspnea on exertion or chronic cough. Cardiovascular: No anginal chest pain or palpitations. History of hypertension. No history of heart attack. Gastrointestinal: No nausea, vomiting, diarrhea, or GI bleeding. Occasional constipation. Genitourinary: No dysuria. Musculoskeletal: Status post mild CVA in 2008. She now has residual mild left- sided weakness and uses a cane. Integumentary: No chronic rashes or skin changes. Neurologic: No headache or blurred vision. Mild weakness of left hand and left foot when compared to right. Steady gait with a cane. No sensory problems. General: No previous anesthesia complications. No history of blood transfusions. She had a pulmonary embolism many years ago with no recurrence and she has never had a deep vein thrombosis. PHYSICAL EXAMINATION GENERAL SURVEY: The patient is an 88-year-old female, somewhat frail, well developed, well nourished, in no acute distress. VITAL SIGNS: Height 58 inches, weight 110 pounds, body mass index 22.6. Blood pressure 126/66, pulse 76, respirations 16, temperature 98.5. HEENT: Benign. NECK: Supple. No cervical lymphadenopathy. No carotid bruits. LUNGS: Breath sounds bilaterally clear and equal. HEART: Regular rate and rhythm. No murmurs or rubs appreciated. BREASTS: Central portion of the right breast is contracted inwards with a 2 cm protrusion at the area of the nipple, which is not visible; there is some evidence of recent excoriation, but no open areas at present. Deep to the contracted area, there is a large area of hard tissue consistent with breast cancer. This seems to be 4 to 5 cm in diameter. Left breast: No discrete masses to palpation. Nipple appears normal. ABDOMEN: Active bowel sounds. Soft, nontender, and nondistended. No obvious masses or ventral hernias. BACK: No CVA tenderness. PELVIC: Exam deferred. RECTAL: Exam deferred. EXTREMITIES: Warm without edema or skin ulceration. NEUROLOGIC: Alert and oriented x3. Steady gait with a cane. SKIN: Warm, dry, and intact. IMPRESSION: Right breast cancer. PLAN: Same-day surgery admission with overnight extension on 08/28/18, to Dr. Blankenship's service for right mastectomy; the patient was cleared to proceed by her primary care provider, Dr. Montesinos; she will hold her aspirin for 5 days preoperatively. CARLY STUART, DEVELOPMENT AND HOUSING DIRECTOR [id number]/[facility] #: [id number] [place]
[~2018-08-28 06:34] MED LIST changes: -Famotidine IV* 10 MG/ML 2 ML (20 mg) IV ONE; -Gabapentin CAP(*) 300 MG PO ONE
[2018-08-28] MEDS ORDERED: Lidocaine 2% PF * 5 ML VIAL ONE ×2 (07:01→10:42)
[2018-08-28] MEDS ORDERED: Propofol* 10 MG/ML 20 ML BTL IV PUSH ONE ×5 (07:01→14:03)
[2018-08-28] MEDS ORDERED: fentaNYL* 50 MCG/ML 2 ML VIAL (100 MCG VIAL) ONE ×2 (07:01→11:24)
[2018-08-28] MEDS ORDERED: Rocuronium* 10 MG/ML VIAL ONE (07:02)
[2018-08-28] MEDS ORDERED: Morphine VIAL* 10 MG/ML 1 ML VIAL ONE (07:03)
[2018-08-28] MEDS ORDERED: ceFOXitin 2 GM IVPREMIX* 0 GM/0 ML BAG ONE (07:03)
[2018-08-28] MEDS ORDERED: ceFAZolin 2 GM PREMIX in ORs 2 GM/50 ML BAG IVPB ONE ×2 (07:03→08:31)
[2018-08-28] MEDS ORDERED: Heparin VIAL(*) 5000 UNITS/ML VIAL (FIVE THOUSAND) ONE (07:03)
[2018-08-28] MEDS ORDERED: Morphine PCA ADULT* 5 MG/ML 30 ML ONE (07:07)
[2018-08-28] MEDS ORDERED: Phenylephrine INJ* 10 MG/ML 1 ML VIAL (10 MG) ONE ×3 (07:07→07:13)
[2018-08-28] MEDS ORDERED: Propofol* 500 MG/50 ML BTL ONE (07:10)
[2018-08-28] MEDS ORDERED: KETAMINE HCL* 50 MG/ML 10 ML VIAL ONE (07:11)
[2018-08-28] MEDS ORDERED: EPINEPHRINE 1 MG/ML 1 ML VIAL ONE (07:17)
[2018-08-28] MEDS ORDERED: Esmolol* 10 MG/ML 10 ML (100 mg) ONE (07:19)
[2018-08-28] MEDS ORDERED: Acetaminophen IV 1GM/100ML * 100 ML ONE (08:16)
[2018-08-28] MEDS ORDERED: Bupivacaine 0.25% SDV PF* 10 ML VIAL INJ ONE (09:11)
[2018-08-28] MEDS ORDERED: Ondansetron INJ* 2 MG/ML VIAL ONE ×2 (09:51→13:54)
[2018-08-28] MEDS ORDERED: Ketorolac INJ* 30 MG/ML 1 ML VIAL ONE ×2 (09:51→12:19)
[2018-08-28] MEDS ORDERED: Dexamethasone IV* 4 MG/ML 1 ML (4 MG) ONE ×2 (09:51→12:19)
[2018-08-28] MEDS ORDERED: Labetalol IV* 5 MG/ML 20 ML VIAL ONE (09:54)
[2018-08-28] MEDS ORDERED: fentaNYL* 50 MCG/ML 2 ML VIAL (100 MCG VIAL) IV PRN (10:07)
[2018-08-28] MEDS ORDERED: Naloxone* 0.4 MG/ML 1 ML VIAL IV PRN (10:07)
[2018-08-28] MEDS ORDERED: Ondansetron INJ* 2 MG/ML VIAL IV PRN ×2 (10:07→11:11)
[2018-08-28] MEDS ORDERED: oxyCODONE TAB* 5 MG TAB PO PRN (10:07)
[2018-08-28] MEDS ORDERED: Sugammadex * 200 MG/2 ML VIAL IV PUSH ONE (10:31)
[2018-08-28] MEDS ORDERED: Midazolam* 1 MG/ML 2 ML VIAL (2 MG) ONE (10:41)
--- NOTE | 2018-08-28 11:00 | OP ---
Operative Report - Blank - Operative Report Date of Operation: 08/28/18 Note: Brief Operative Note Preop Dx: Right breast cancer Postop Dx: same Procedure: Right mastectomy Anesthesia: GET w/ pectoral block Surgeon: Krzysztof Display Screen Fabricator: JACKY Murillo Fluids: 2000 ml RL EBL: 50 ml Specimen: Right breast Drains: 1 GEOFF Findings: dictated
[2018-08-28] MEDS ORDERED: Amitriptyline TAB* 25 MG PO PRN (11:07)
[2018-08-28] MEDS ORDERED: Docusate CAP* 100 MG PO PRN (11:07)
[2018-08-28] MEDS ORDERED: Albuterol HFA INHALER* 8 gm MDI INH PRN (11:07)
[2018-08-28] MEDS ORDERED: Senna TAB PO PRN (11:07)
[2018-08-28] MEDS ORDERED: Zolpidem TAB* 10 MG PO PRN (11:07)
[2018-08-28] MEDS ORDERED: Acetaminophen TAB* 325 MG PO PRN (11:10)
[2018-08-28] MEDS ORDERED: Morphine VIAL* 4 MG/ML VIAL (1 ml vial) IV PRN (11:11)
[2018-08-28] MEDS ORDERED: Ondansetron ODT TAB* 4 MG SL PRN (11:11)
[2018-08-28] MEDS ORDERED: oxyCODONE TAB* 5 MG TAB ONE (12:02)
[2018-08-28] MEDS ORDERED: HYDROcodone/ACETAMIN 5-325 MG* 1 TAB PO PRN (14:58)
[2018-08-28 15:39] LABS: ABS Basophils 0 10^3/ul (0-0.2); ABS Eosinophils 0 10^3/ul (0-0.6); ABS Lymphocytes 0.7 10^3/ul (1.0-4.8); ABS Monocytes 0.1 10^3/ul (0-0.8); ABS Neutrophils 8.4 10^3/ul (1.5-7.7); ABS Nucleated RBC 0 10^3/ul; Eosinophil % 0 % (0-6); Hematocrit 36 % (35-47); Hemoglobin 12.3 g/dl (12.0-16.0); Lymphocyte % 7.9 % (25-47); Mean Corpuscular HGB Conc 34 g/dl (31-36); Mean Corpuscular Hemoglobin 32 pg (27-31); Mean Corpuscular Volume 94 fL (80-97); Mean Platelet Volume 8.1 fL (7.4-10.4); Nucleated Red Blood Cells % 0; Platelet Count 202 10^3/ul (150-450); Red Blood Count 3.84 10^6/ul (4.00-5.40); Red Cell Distribution Width 13 % (10.5-15); White Blood Count 9.3 10^3/ul (3.5-10.8)
[2018-08-28 15:47] LABS: INR 0.92 (0.77-1.02)
[2018-08-28] MEDS ORDERED: Atorvastatin* 10 MG TAB PO SCH (17:00)
[2018-08-28] MEDS: HYDROcodone/ACETAMIN 5-325 MG* 1 TAB PO PRN (20:53)
[2018-08-28] MEDS: Heparin VIAL(*) 5000 UNITS/ML VIAL (FIVE THOUSAND) SUBCUT SCH (20:54)
[2018-08-28] MEDS: Artificial Tears* 15 ML BTL BOTH EYES SCH (20:56)
[2018-08-28] MEDS ORDERED: Fluticasone NASAL SPRAY 50MCG* 16 gm SPRAY BTL BOTH NARES SCH (21:00)
--- NOTE | 2018-08-28 21:53 | OP ---
CC: [facility]; Lencho Montesinos MD * DATE OF OPERATION: 08/28/18 - ROOM #340 DATE OF : 30 SURGEON: Tg Blankenship MD HIDE PASTER: JACKY Dior PRE-OP DIAGNOSIS: Right breast cancer. POST-OP DIAGNOSIS: Right breast cancer. OPERATIVE PROCEDURE: Right mastectomy. INDICATIONS: Ms. Bobby is an 88-year-old woman who has been managing her breast cancer with hormonal therapy; however, has failed to make progress recently, so plans were made for surgical intervention. DESCRIPTION OF PROCEDURE: She was brought to the operating room and placed on the OR table in a supine position and given general anesthesia. This was done after she was given pectoralis block by Anesthesia. The right breast was then prepped and draped in usual sterile fashion. An incision was made in the superior breast in a fashion and subcutaneous tissue was divided with electrocautery to create a flap medially to the sternum, superiorly to the clavicle and laterally to the latissimus dorsi muscle. An anterior incision was then made encompassing the nipple-areolar complex and subcutaneous tissue was again divided with electrocautery medially to the sternum, anteriorly to the rectus muscle and laterally to the latissimus dorsi muscle. The breast was then elevated off the chest wall using electro-cautery. When the axilla was reached, it was noted that there was no obvious adenopathy, so no additional tissue was taken from the axilla. Once the breast was off, it was marked in the usual fashion and handed off as a specimen. Hemostasis was assured with electrocautery. The wound was irrigated with saline and then a GEOFF drain was placed under the flaps through a stab wound in the anterior inferior axillary line. Closure was accomplished using 2-0 and 3-0 Vicryl interrupted stitches in the subcutaneous tissue and the skin was closed with 4-0 Vicryl in a subcuticular fashion. Steri-Strips and a dry fluffy dressing were applied. This was done after the GEOFF was secured to the chest wall with a 3-0 Prolene stitch. All sponge and instrument counts were correct. The patient tolerated the procedure well and was transferred to Recovery in a stable condition. [id number]/[facility] #: [id number] [facility]
[2018-08-29] MEDS: HYDROcodone/ACETAMIN 5-325 MG* 1 TAB PO PRN (05:27)
[2018-08-29] MEDS: Heparin VIAL(*) 5000 UNITS/ML VIAL (FIVE THOUSAND) SUBCUT SCH (05:28)
[2018-08-29] MEDS ORDERED: Levothyroxine TAB* 25 MCG TAB PO SCH (06:00)
--- NOTE | 2018-08-29 07:28 | PN ---
Progress Note - Progress Note Date of Service: 08/29/18 Note: Surgery Ms. Bobby had an episode of low BP overnight, she denies symptoms and says her pain is managed by the pills. Vital Signs 08/28/18 08/28/18 08/28/18 11:04 11:05 11:07 Temperature 97.2 F Pulse Rate 62 62 Respiratory 20 Rate Blood Pressure 140/72 145/63 (mmHg) O2 Sat by Pulse 100 100 Oximetry 08/28/18 08/28/18 08/28/18 11:10 11:15 11:20 Temperature Pulse Rate 61 61 61 Respiratory 27 20 17 Rate Blood Pressure 137/67 132/77 133/69 (mmHg) O2 Sat by Pulse 100 100 100 Oximetry 08/28/18 08/28/18 08/28/18 11:25 11:30 11:43 Temperature Pulse Rate 61 Respiratory 18 18 16 Rate Blood Pressure 123/63 (mmHg) O2 Sat by Pulse 100 Oximetry 08/28/18 08/28/18 08/28/18 11:45 12:00 12:01 Temperature 97.7 F Pulse Rate 66 65 66 Respiratory 22 17 17 Rate Blood Pressure 108/61 121/66 (mmHg) O2 Sat by Pulse 100 100 100 Oximetry 08/28/18 08/28/18 08/28/18 12:49 13:24 13:57 Temperature 98.0 F 98 F 97.9 F Pulse Rate 69 69 73 Respiratory 16 16 16 Rate Blood Pressure 130/54 130/54 141/67 (mmHg) O2 Sat by Pulse 97 97 97 Oximetry 08/28/18 08/28/18 08/28/18 14:08 14:50 15:09 Temperature 97.7 F Pulse Rate 72 Respiratory 18 16 18 Rate Blood Pressure 141/62 (mmHg) O2 Sat by Pulse 96 Oximetry 08/28/18 08/28/18 08/28/18 15:52 16:00 17:03 Temperature Pulse Rate 69 Respiratory 18 16 Rate Blood Pressure 132/65 (mmHg) O2 Sat by Pulse 99 99 Oximetry 08/28/18 08/28/18 08/28/18 18:31 19:30 20:00 Temperature 97.4 F Pulse Rate 72 Respiratory 18 16 17 Rate Blood Pressure 118/50 (mmHg) O2 Sat by Pulse 96 Oximetry 08/28/18 08/28/18 08/29/18 20:53 23:03 00:01 Temperature 97.5 F Pulse Rate 68 Respiratory 16 16 16 Rate Blood Pressure 93/44 (mmHg) O2 Sat by Pulse 99 Oximetry 08/29/18 08/29/18 08/29/18 02:31 03:58 05:27 Temperature 97.5 F Pulse Rate 69 Respiratory 16 16 Rate Blood Pressure 101/51 (mmHg) O2 Sat by Pulse 99 98 Oximetry Mastectomy site is clean and dry, without signs of infection. GEOFF drainage is serosanguinous Intake & Output 08/28/18 08/29/18 08/29/18 22:59 06:59 14:59 Intake Total 480 200 Output Total 795 100 Balance -315 100 Intake: Oral 480 200 Output: GEOFF #1 70 Urine 725 100 Other: Estimated Void Large # Voids 1 A/P: POD#1 s/p right mastectomy; doing well. Can go home and f/u as outpt.
[2018-08-29] MEDS: Artificial Tears* 15 ML BTL BOTH EYES SCH (08:25)
[2018-08-29] MEDS ORDERED: Omeprazole CAP* 20 MG PO SCH (09:00)
[2018-08-29] MEDS ORDERED: Aspirin TAB* 325 MG PO SCH (09:00)
[2018-08-29] MEDS ORDERED: UMECLIDINIUM INH SCH (09:00)
[2018-08-29] MEDS ORDERED: Sertraline* 50 MG TAB PO SCH (09:00)
[2018-08-29] MEDS ORDERED: VILANTEROL INH SCH (09:00)
[2018-08-29 09:31] VITALS: BP 113/56
--- NOTE | 2018-08-30 00:05 | DS ---
DISCHARGE SUMMARY: DATE OF ADMISSION: 08/28/18 DATE OF DISCHARGE: 08/29/18 ADMISSION DIAGNOSIS: Right breast cancer. DISCHARGE DIAGNOSIS: Right breast cancer. PROCEDURE DURING THIS HOSPITALIZATION: Included mastectomy done on the date of admission. HISTORY: Please see admission history and physical for details of findings at the time of admission. She underwent surgery and postoperatively had a routine course and by the next day was noted to have an incision that looked healthy and she was able to be discharged to home with instructions to follow up as an outpatient. [id number]/[facility] #: [id number] MTDD
== END 2018-08-29 11:15 | disposition home or self-care (01) ==
LOC: OR 06:34 → SSU 12:49 → INTOOBSV 12:49
PROVIDERS: ADMIT Surgery; ATTEND Surgery
DX: C50.111 Malignant neoplasm of central portion of right female breast (principal); Z79.82 Long term (current) use of aspirin; Z79.899 Other long term (current) drug therapy; Z88.6 Allergy status to analgesic agent; Z88.8 Allergy status to other drugs, medicaments and biological substances; Z87.891 Personal history of nicotine dependence; Z79.890 Hormone replacement therapy
CPT/HCPCS: 36415; 82565; 84520; 85025; 85610; 85730; 88307; 96374; 96375; A9270-GY; G0378; J0690; J0694; J1100; J1644; J1885; J2250; J2270; J2405; J2704; J3010; J3490